=== PATIENT | female | born 1950 | race Caucasian/White ===

== ENCOUNTER 2021-07-11 12:28 | Inpatient (IN) | payer MEDICARE, SELFPAY ==
[2021-07-11] VITALS (37 sets, daily range): BP systolic 99–135; BP diastolic 58–89; PULSE 96–125; RESP 17–29; TEMP 36.1–37.1; O2SAT 92–100; BMI 31.1
--- NOTE | 2021-07-11 12:52 | DI.RAD.S_ITS ---
PROCEDURE: XR CHEST 2V INDICATIONS: chest pain TECHNIQUE: 2 views of the chest were acquired. COMPARISON: [facility], , CHEST 1 VIEW, 01/16/2017, 20:09. FINDINGS: Surgical changes and devices: None. Lungs and pleura: Bibasilar streaky densities. No consolidation, pleural effusions or pneumothorax. Mediastinum: Mediastinal contours are normal. Heart size is normal. Bones and chest wall: No suspicious bony abnormalities. Soft tissues appear unremarkable. IMPRESSION: Bibasilar streaky densities, likely reflecting atelectasis. Dictated by: Ajay Morillo M.D. on 07/11/2021 at 13:20 Approved by: Ajay Morillo M.D. on 07/11/2021 at 13:22
[2021-07-11 13:48] LABS: Add Manual Diff / Slide Review NO; Basophils Absolute Auto 100 /uL (0-100); Basophils Percent Auto 0.7 % (0-2); Eosinophils Absolute Auto 100 /uL (0-450); Eosinophils Percent Auto 0.9 % (2-4); Hematocrit 36.6 % (36-46); Lymphocytes Absolute Auto 900 /uL (1100-4500); Lymphocytes Percent Auto 7.4 % (25-40); Mean Corpuscular HGB Conc 32.7 % (30-36); Mean Corpuscular Hemoglobin 27.8 PG (26-34); Monocytes Absolute Auto 900 /uL (0-900); Monocytes Percent Auto 7.5 % (3-14); Neutrophils Absolute Auto 9800 /uL (1500-7000); Neutrophils Percent Auto 83.5 % (50-75); Platelet Count 285 X10^3/uL (150-400); Red Cell Distribution Width 13.8 % (11.6-14.8); White Blood Cell Count 11.8 X10^3/uL (4.5-11.0)
[2021-07-11 14:10] LABS: INR 1.2 (0.9-1.3); Prothrombin Time 13.6 SECONDS (10.1-12.7)
[2021-07-11 14:15] LABS: Lactate (Lactic Acid) 2.5 mmol/L (0.7-2.1)
[2021-07-11 14:16] LABS: Alanine Aminotransferase 14 IU/L (<35); Albumin 4.2 g/dL (3.5-5.0); Albumin Globulin Ratio 1.2 (1.0-2.8); Alkaline Phosphatase 47 U/L (38-126); Aspartate Aminotransferase 24 IU/L (14-36); Blood Urea Nitrogen 21 mg/dL (7-17); Calcium 9.4 mg/dL (8.4-10.2); Carbon Dioxide 28 mmol/L (22-32); Chloride 99 mmol/L (98-107); Creatine Kinase 77 U/L (30-135); Globulin 3.6 g/dL (1.7-4.1); Glucose 318 mg/dL (80-110); HEMOLYSIS < 15 (0-50); Lipase 74 U/L (23-300); Potassium 3.6 mmol/L (3.4-5.1); Sodium 135 mmol/L (137-145); Total Protein 7.8 g/dL (6.3-8.2)
[2021-07-11 14:28] LABS: NT-proBNP (BNP-Adult 18+) 2960 pg/mL (<125)
[2021-07-11 14:49] LABS: Bacteria Urine None Seen; Culture Indicated Urine Cult Not Indicated; Hyaline Casts Urine 1-5/LPF; Ictotest Urine Negative (Negative); Mucus Urine 1+ (Negative); RBC Urine None Seen (0-5/HPF); Squamous Epithelial Cell Urine 0-1 /HPF (0-5/HPF); WBC Urine 0-1/HPF (0-5/HPF)
--- NOTE | 2021-07-11 14:55 | ED.CHESTPAIN ---
HPI - Chest Pain General Chief Complaint: Shortness of Breath/Dyspnea Stated Complaint: Rib Pain/SOB Time Seen by Provider: 07/11/21 13:55 Source: patient Mode of arrival: Ambulatory History of Present Illness HPI narrative: 71-year-old female with history of diabetes hypertension hyperlipidemia who presents with right chest pain. She says she has had some right-sided rib pain ongoing for last 2-3 days. It is definitely worse when she takes deep breaths in fact hurts when she takes deep breaths. When she walks and breathes it hurts and she feels short of breath. The pain radiates around into the front. She has no left-sided chest discomfort. She has not traveled anywhere she denies any cough. She has no palpitations. This is never happened to her before. She denies any injury. In fact the last couple of days she has not done very much because it hurts so bad. No nausea or vomiting Related Data Home Medications Medication Instructions Recorded Confirmed citalopram 40 mg tablet 40 mg PO QDAY #0 10/28/11 lisinopril 20 1 tab PO BID #0 10/28/11 mg-hydrochlorothiazide 12.5 mg tablet metformin 500 mg tablet,extended 500 mg PO BID #60 tab 01/17/17 release 24 hr (Glucophage XR) Previous Rx's Medication Instructions Recorded glipizide 10 mg tablet, extended 10 mg PO BID #60 10/28/11 release 24 hr NAPROXEN (NAPROSYN) 250 mg PO BIDCC #60 11/10/11 rosuvastatin 10 mg tablet (Crestor) 10 mg PO HS #30 01/18/17 Allergies Allergy/AdvReac Type Severity Reaction Status Date / Time codeine [CODEINE] Allergy Mild Verified 07/11/21 12:51 Review of Systems Review of Systems Narrative: GENERAL: Denies chills, fatigue, malaise, fever, sweats, travel HEENT: Denies sinus pain, ear pain, sore throat, difficulty swallowing, neck pain RESPIRATORY: See HPI CARDIOVASCULAR: Denies chest pain, palpitations, orthopnea, edema GASTROINTESTINAL: Denies nausea, vomiting, abdominal pain, diarrhea, constipation, melena. : Denies dysuria, frequency, incontinence, hematuria, urinary retention, flank pain. MUSCULOSKELETAL: Denies weakness, joint pain, or bony pain SKIN: No rash, no erythema, no pruritus NEUROLOGIC: Denies weakness, dizziness, headache, numbness, change in speech, confusion PSYCHIATRIC: No concerning psychosocial issues. 12 point review of systems is negative except for those stated above and HPI Patient History Social History Smoking Status: Never smoker Smoking Status: Never smoker alcohol intake frequency: other Substance Use Type: does not use Exam Initial Vital Signs Initial Vital Signs: Vital Signs Temperature 98.7 F 07/11/21 12:48 Pulse Rate 120 H 07/11/21 12:48 Respiratory Rate 18 07/11/21 12:48 Blood Pressure 99/65 07/11/21 12:48 Pulse Oximetry 96 07/11/21 12:48 GENERAL: Alert 71-year-old female uncomfortable in no acute distress. HEENT: Head atraumatic,EOMI, pupils reactive, face symmetric, moist mucous membranes CARDIOVASCULAR: Regular rate and rhythm without murmurs, rubs or gallops. RESPIRATORY: Breath sounds equal bilaterally, no wheezes rales or rhonchi. ABDOMEN: Soft, nontender. No right upper quadrant pain negative [place] sign no lower abdominal pain : No CVA tenderness EXTREMITIES: Normal range of motion, no clubbing or edema. Neurovascularly intact NEUROLOGICAL: Alert and oriented x4.Normal gait and speech. SKIN: Warm, dry, no laceration, no petechiae, no rashes or lesions. Course Orders Ordered: ED Orders 07/11/21 12:52 XR chest 2V Stat EKG-12 Lead Stat 07/11/21 13:32 COVID19 -Nasal swab/Pre-Proc Stat Complete Blood Count AUTO DIFF Stat Comprehensive Metabolic Panel Stat Lactate (Lactic Acid) Stat Lipase Stat NT-proBNP (BNP-Adult 18+) Stat Procalcitonin Stat Prothrombin Time INR Stat Troponin & CK Cardiac Panel Stat 07/11/21 13:38 Ictotest Urine Stat Urine Microscopic Stat 07/11/21 13:55 Blood Culture Stat 07/11/21 15:02 CT angio chest PE protocol Stat 07/11/21 16:07 PT [Prothrombin Time INR] Stat PTT [Partial Thromboplastin Time] Stat Trop I [Troponin I] Stat 07/11/21 23:00 PTT [Partial Thromboplastin Time] Routine Acetaminophen (Acetaminophen 325 Mg Tablet) 975 mg PO Q8HR PRN PRN Reason: pain Apixaban (Apixaban 5 Mg Tablet) 5 mg PO BID JON Heparin Sodium/Dextrose (Heparin Drip) 25,000 unit in 500 mls @ 24 mls/hr IV CONT JON; Protocol Stop: 07/11/21 22:00 Last Admin: 07/11/21 17:03 Dose: 1,200 units/hr, 24 mls/hr Documented by: MICKY Naloxone HCl (Naloxone 0.4 Mg/Ml Vial) 0.2 mg IV Q2MIN PRN PRN Reason: Opiate Reversal Ondansetron HCl (Ondansetron 4 Mg/2 Ml Inj) 4 mg IV Q8HR PRN PRN Reason: Nausea And Vomiting Oxycodone HCl (Oxycodone Ir 5 Mg Tablet) 5 mg PO Q4HR PRN PRN Reason: Pain, Moderate (4-6) Discontinued Medications Heparin Sodium (Porcine) (Heparin 5,000 Unit/Ml Vial) 5,000 unit IV NOW ONE Stop: 07/11/21 15:54 Last Admin: 07/11/21 16:48 Dose: Not Given Documented by: MICKY Heparin Sodium (Porcine) (Heparin 5,000 Unit/Ml Vial) 7,000 unit 80 unit/kg (7000 unit) IV NOW ONE Stop: 07/11/21 16:47 Last Admin: 07/11/21 17:03 Dose: 7,000 unit Documented by: MICKY Heparin Sodium/Dextrose (Heparin Drip) 25,000 unit in 500 mls @ 20 mls/hr IV CONT JON; Protocol Last Admin: 07/11/21 16:48 Dose: Not Given Documented by: MICKY Vital Signs Vital signs: Vital Signs - 8 hr 07/11/21 12:48 07/11/21 14:44 07/11/21 14:45 Temperature 98.7 F Pulse Rate 120 H 118 H 125 H Respiratory Rate 18 17 24 Blood Pressure 99/65 Pulse Oximetry 96 99 95 07/11/21 14:49 07/11/21 14:50 07/11/21 15:00 Temperature Pulse Rate 111 H 104 H 103 H Respiratory Rate 27 H 24 26 H Blood Pressure 122/89 119/58 L 123/59 L Pulse Oximetry 95 96 94 07/11/21 15:17 07/11/21 15:18 07/11/21 15:20 Temperature Pulse Rate 115 H 110 H 105 H Respiratory Rate 28 H 24 Blood Pressure 135/70 130/66 Pulse Oximetry 92 95 98 07/11/21 15:30 07/11/21 15:41 07/11/21 15:45 Temperature Pulse Rate 105 H 104 H 105 H Respiratory Rate 25 H 24 23 Blood Pressure 116/61 112/60 Pulse Oximetry 99 99 98 07/11/21 15:51 07/11/21 16:00 07/11/21 16:15 Temperature Pulse Rate 104 H 106 H 106 H Respiratory Rate 24 29 H 25 H Blood Pressure 104/63 103/67 Pulse Oximetry 98 96 96 07/11/21 16:30 07/11/21 16:45 07/11/21 17:00 Temperature Pulse Rate 106 H 106 H 101 H Respiratory Rate 24 26 H 29 H Blood Pressure Pulse Oximetry 96 95 96 07/11/21 17:03 07/11/21 17:10 Temperature Pulse Rate 101 H 102 H Respiratory Rate 21 25 H Blood Pressure 122/71 115/64 Pulse Oximetry 100 100 MDM - Chest Pain Lab Data Result diagrams: 07/11/21 13:32 07/11/21 13:32 Labs: Lab Results 07/11/21 07/11/21 07/11/21 Range/Units 13:32 13:32 13:32 WBC 11.8 H (4.5-11.0) X10^3/uL RBC 4.30 (4.0-5.2) X10^6/uL Hgb 12.0 (12.0-16.0) g/dL Hct 36.6 (36-46) % MCV 85.0 (80-100) fL MCH 27.8 (26-34) PG MCHC 32.7 (30-36) % RDW 13.8 (11.6-14.8) % Plt Count 285 (150-400) X10^3/uL Neut % (Auto) 83.5 H (50-75) % Lymph % (Auto) 7.4 L (25-40) % [place] % (Auto) 7.5 (3-14) % Eos % (Auto) 0.9 L (2-4) % Baso % (Auto) 0.7 (0-2) % Neut # (Auto) 9800 H (9256-8480) /uL Lymph # (Auto) 900 L (0931-9662) /uL [place] # (Auto) 900 (0-900) /uL Eos # (Auto) 100 (0-450) /uL Baso # (Auto) 100 (0-100) /uL PT 13.6 H (10.1-12.7) SECONDS INR 1.2 (0.9-1.3) APTT (26.4-36.2) SECONDS Sodium 135 L (137-145) mmol/L Potassium 3.6 (3.4-5.1) mmol/L Chloride 99 (98-107) mmol/L Carbon Dioxide 28 (22-32) mmol/L BUN 21 H (7-17) mg/dL Creatinine 1.05 H (0.52-1.04) mg/dL Estimated GFR 52.0 L (>60) mL/min BUN/Creatinine Ratio 20.0 (6-22) Glucose 318 H (80-110) mg/dL Lactate (0.7-2.1) mmol/L Calcium 9.4 (8.4-10.2) mg/dL Total Bilirubin 1.0 (0.2-1.3) mg/dL AST 24 (14-36) IU/L ALT 14 (<35) IU/L Alkaline Phosphatase 47 (38-126) U/L Total Creatine Kinase 77 (30-135) U/L CK-MB (CK-2) TNP CK-MB (CK-2) Rel Index TNP Troponin I 0.600 H* (0.01-0.034) ng/mL NT-Pro-B Natriuret Pep 2960 H (<125) pg/mL Total Protein 7.8 (6.3-8.2) g/dL Albumin 4.2 (3.5-5.0) g/dL Globulin 3.6 (1.7-4.1) g/dL Albumin/Globulin Ratio 1.2 (1.0-2.8) Lipase 74 (23-300) U/L Procalcitonin (<0.5) ng/mL Ur Bilirubin Confirm (Negative) Urine RBC (0-5/HPF) Urine WBC (0-5/HPF) Ur Squamous Epith Cells (0-5/HPF) Urine Bacteria (None) Hyaline Casts (None) Urine Mucus (Negative) Ur Culture Indicated? SARS-CoV-2 (PCR) (Negative) 07/11/21 07/11/21 07/11/21 Range/Units 13:32 13:32 13:32 WBC (4.5-11.0) X10^3/uL RBC (4.0-5.2) X10^6/uL Hgb (12.0-16.0) g/dL Hct (36-46) % MCV (80-100) fL MCH (26-34) PG MCHC (30-36) % RDW (11.6-14.8) % Plt Count (150-400) X10^3/uL Neut % (Auto) (50-75) % Lymph % (Auto) (25-40) % [place] % (Auto) (3-14) % Eos % (Auto) (2-4) % Baso % (Auto) (0-2) % Neut # (Auto) (6950-5816) /uL Lymph # (Auto) (0695-8047) /uL [place] # (Auto) (0-900) /uL Eos # (Auto) (0-450) /uL Baso # (Auto) (0-100) /uL PT (10.1-12.7) SECONDS INR (0.9-1.3) APTT (26.4-36.2) SECONDS Sodium (137-145) mmol/L Potassium (3.4-5.1) mmol/L Chloride (98-107) mmol/L Carbon Dioxide (22-32) mmol/L BUN (7-17) mg/dL Creatinine (0.52-1.04) mg/dL Estimated GFR (>60) mL/min BUN/Creatinine Ratio (6-22) Glucose (80-110) mg/dL Lactate 2.5 H (0.7-2.1) mmol/L Calcium (8.4-10.2) mg/dL Total Bilirubin (0.2-1.3) mg/dL AST (14-36) IU/L ALT (<35) IU/L Alkaline Phosphatase (38-126) U/L Total Creatine Kinase (30-135) U/L CK-MB (CK-2) CK-MB (CK-2) Rel Index Troponin I (0.01-0.034) ng/mL NT-Pro-B Natriuret Pep (<125) pg/mL Total Protein (6.3-8.2) g/dL Albumin (3.5-5.0) g/dL Globulin (1.7-4.1) g/dL Albumin/Globulin Ratio (1.0-2.8) Lipase (23-300) U/L Procalcitonin 0.10 (<0.5) ng/mL Ur Bilirubin Confirm (Negative) Urine RBC (0-5/HPF) Urine WBC (0-5/HPF) Ur Squamous Epith Cells (0-5/HPF) Urine Bacteria (None) Hyaline Casts (None) Urine Mucus (Negative) Ur Culture Indicated? SARS-CoV-2 (PCR) Negative (Negative) 07/11/21 07/11/21 07/11/21 Range/Units 13:38 13:38 16:07 WBC (4.5-11.0) X10^3/uL RBC (4.0-5.2) X10^6/uL Hgb (12.0-16.0) g/dL Hct (36-46) % MCV (80-100) fL MCH (26-34) PG MCHC (30-36) % RDW (11.6-14.8) % Plt Count (150-400) X10^3/uL Neut % (Auto) (50-75) % Lymph % (Auto) (25-40) % [place] % (Auto) (3-14) % Eos % (Auto) (2-4) % Baso % (Auto) (0-2) % Neut # (Auto) (6767-2044) /uL Lymph # (Auto) (2447-4804) /uL [place] # (Auto) (0-900) /uL Eos # (Auto) (0-450) /uL Baso # (Auto) (0-100) /uL PT (10.1-12.7) SECONDS INR (0.9-1.3) APTT (26.4-36.2) SECONDS Sodium (137-145) mmol/L Potassium (3.4-5.1) mmol/L Chloride (98-107) mmol/L Carbon Dioxide (22-32) mmol/L BUN (7-17) mg/dL Creatinine (0.52-1.04) mg/dL Estimated GFR (>60) mL/min BUN/Creatinine Ratio (6-22) Glucose (80-110) mg/dL Lactate 3.0 H (0.7-2.1) mmol/L Calcium (8.4-10.2) mg/dL Total Bilirubin (0.2-1.3) mg/dL AST (14-36) IU/L ALT (<35) IU/L Alkaline Phosphatase (38-126) U/L Total Creatine Kinase (30-135) U/L CK-MB (CK-2) CK-MB (CK-2) Rel Index Troponin I (0.01-0.034) ng/mL NT-Pro-B Natriuret Pep (<125) pg/mL Total Protein (6.3-8.2) g/dL Albumin (3.5-5.0) g/dL Globulin (1.7-4.1) g/dL Albumin/Globulin Ratio (1.0-2.8) Lipase (23-300) U/L Procalcitonin (<0.5) ng/mL Ur Bilirubin Confirm Negative (Negative) Urine RBC None seen (0-5/HPF) Urine WBC 0-1/hpf (0-5/HPF) Ur Squamous Epith Cells 0-1 /hpf (0-5/HPF) Urine Bacteria None seen (None) Hyaline Casts 1-5/lpf (None) Urine Mucus 1+ H (Negative) Ur Culture Indicated? Cult not indicated SARS-CoV-2 (PCR) (Negative) 07/11/21 07/11/21 Range/Units 16:07 16:07 WBC (4.5-11.0) X10^3/uL RBC (4.0-5.2) X10^6/uL Hgb (12.0-16.0) g/dL Hct (36-46) % MCV (80-100) fL MCH (26-34) PG MCHC (30-36) % RDW (11.6-14.8) % Plt Count (150-400) X10^3/uL Neut % (Auto) (50-75) % Lymph % (Auto) (25-40) % [place] % (Auto) (3-14) % Eos % (Auto) (2-4) % Baso % (Auto) (0-2) % Neut # (Auto) (9681-8428) /uL Lymph # (Auto) (5771-3590) /uL [place] # (Auto) (0-900) /uL Eos # (Auto) (0-450) /uL Baso # (Auto) (0-100) /uL PT 13.3 H (10.1-12.7) SECONDS INR 1.2 (0.9-1.3) APTT 27 (26.4-36.2) SECONDS Sodium (137-145) mmol/L Potassium (3.4-5.1) mmol/L Chloride (98-107) mmol/L Carbon Dioxide (22-32) mmol/L BUN (7-17) mg/dL Creatinine (0.52-1.04) mg/dL Estimated GFR (>60) mL/min BUN/Creatinine Ratio (6-22) Glucose (80-110) mg/dL Lactate (0.7-2.1) mmol/L Calcium (8.4-10.2) mg/dL Total Bilirubin (0.2-1.3) mg/dL AST (14-36) IU/L ALT (<35) IU/L Alkaline Phosphatase (38-126) U/L Total Creatine Kinase (30-135) U/L CK-MB (CK-2) CK-MB (CK-2) Rel Index Troponin I 0.794 H* (0.01-0.034) ng/mL NT-Pro-B Natriuret Pep (<125) pg/mL Total Protein (6.3-8.2) g/dL Albumin (3.5-5.0) g/dL Globulin (1.7-4.1) g/dL Albumin/Globulin Ratio (1.0-2.8) Lipase (23-300) U/L Procalcitonin (<0.5) ng/mL Ur Bilirubin Confirm (Negative) Urine RBC (0-5/HPF) Urine WBC (0-5/HPF) Ur Squamous Epith Cells (0-5/HPF) Urine Bacteria (None) Hyaline Casts (None) Urine Mucus (Negative) Ur Culture Indicated? SARS-CoV-2 (PCR) (Negative) Urine Dip Bedside Urine Glucose Negative Bedside Urine Bilirubin ++ 2 Bedside Urine Ketone +/- 5 Urine Specific [place] 1.030 Bedside Urine Occult Blood - Negative Bedside Urine pH 5.5 Bedside Urine Protein +/- 15 Bedside Urine Urobilinogen - Negative Bedside Urine Nitrite - Negative Bedside Urine Leukocytes - Negative Esterase Imaging Data Chest x-ray: Radiologist's Impression: PROCEDURE:? XR CHEST 2V ? INDICATIONS:? chest pain ? TECHNIQUE:? 2 views of the chest were acquired.? ? COMPARISON:? [facility], , CHEST 1 VIEW, 01/16/2017, 20:09. ? FINDINGS:? ? Surgical changes and devices:? None.? ? Lungs and pleura:? Bibasilar streaky densities.? No consolidation, pleural effusions or pneumothorax.? ? Mediastinum:? Mediastinal contours are normal.? Heart size is normal.? ? Bones and chest wall:? No suspicious bony abnormalities.? Soft tissues appear unremarkable.? ? IMPRESSION:? Bibasilar streaky densities, likely reflecting atelectasis. ? ? Dictated by: Ajay Morillo M.D. on 07/11/2021 at 13:20 ? ? Approved by: Ajay Morillo M.D. on 07/11/2021 at 13:22? ECG Data Interpretation: Normal sinus rhythm rate 117 p.r. interval 132 QRS 90 QTC 507 T-wave inversions noted in V2 through V4 without ST elevations these are new from previous EKG in 2017 EKG 2. Heart rate 104 persistent T-wave inversions noted V2 through V [address] T changes or depressions T-wave inversion also noted in lead 2 and AVF MDM Narrative Medical decision making narrative: Patient is found to have a positive troponin of 0.6. She is also found to have an elevated BNP of 2960. CT actually comes of back was bilateral pulmonary embolisms with probable right lower lobe pulmonary infarct. She is not hypotensive or hypoxic is without saddle PE. 1700 Dr Fountain hodspitalist at [place] has been updated patient's symptoms and test results at this time does not require any intervention. Does recommend hospitalization with anticoagulation Discharge Plan Departure Patient Disposition: Admitted as Observation Clinical Impression: Pulmonary embolism Admit Date/Time: 07/11/21 17:10 Admit Provider: Elie Thibodeaux
--- NOTE | 2021-07-11 15:02 | DI.CT.S_ITS ---
PROCEDURE: CT ANGIO CHEST PE PROTOCOL INDICATIONS: right sided pain +trop TECHNIQUE: After the administration of intravenous contrast, 2 mm thick sections acquired from the pulmonary apices to the posterior costophrenic angles. 3-dimensional maximum intensity projection (MIP) coronal and sagittal reformats were then acquired through the thorax. For radiation dose reduction, the following was used: automated exposure control, adjustment of mA and/or kV according to patient size. COMPARISON: [facility], CT, PE STUDY (CTA CHEST), 01/16/2017, 23:54. [facility], CR, XR CHEST 2V, 07/11/2021, 12:54. FINDINGS: Image quality: Excellent. Pulmonary arteries: There are bilateral filling defects involving segmental and subsegmental pulmonary arteries within all lobes consistent with pulmonary embolism. No embolism demonstrated within the lobar or main pulmonary artery. The main pulmonary artery is within normal size limits, measuring up to 2.7 cm. No definite leftward deviation of the interventricular septum to suggest right heart strain. Lungs and pleura: There is a small right pleural effusion. Dependent atelectasis is demonstrated bilaterally. There also peripheral ground-glass opacities posteriorly in the right lower lobe which may represent atelectasis but a developing pulmonary infarct cannot be excluded. The trachea and central airways are patent. Mediastinum: Heart size is normal, with a minimal pericardial effusion. Thoracic aorta is normal in caliber and enhancement. There are mildly enlarged mediastinal lymph nodes including a precarinal node measuring up to 1.0 cm in short axis and an azygoesophageal node measuring up to 1.2 cm in short axis. Esophagus is normal in caliber, with a small hiatal hernia. Bones and chest wall: No suspicious bony lesions. Ribs and thoracic spine appear intact throughout. Thyroid gland is heterogeneous with bilateral indistinct nodules. No axillary or supraclavicular adenopathy. Abdomen: Visualized upper abdominal solid organs appear normal in the early arterial phase of enhancement. IMPRESSION: 1. Bilateral pulmonary embolism demonstrated within all lobes involving segmental and subsegmental branches. No definite evidence of right heart strain. 2. Peripheral ground-glass opacity posteriorly in the right lower lobe is suspicious for a developing pulmonary infarct given the occluded subsegmental pulmonary arteries extending to this region. 3. Small right pleural effusion. Findings discussed with Dr. Hill on 07/11/2021 at 4:25 p.m.. 4. Mildly enlarged mediastinal lymph nodes are nonspecific but likely reactive. Findings are similar to the prior study. Dictated by: Dario Archer M.D. on 07/11/2021 at 16:10 Approved by: Dario Archer M.D. on 07/11/2021 at 16:29
[2021-07-11 15:17] LABS: COVID19 -Nasal RAPID Negative (Negative)
[2021-07-11 15:37] LABS: Reflexed Lactate in 2 Hours Y
[2021-07-11 16:49] LABS: INR 1.2 (0.9-1.3); Prothrombin Time 13.3 SECONDS (10.1-12.7)
[2021-07-11 16:52] LABS: PTT Partial Thromboplastin Tim 27 SECONDS (26.4-36.2)
[2021-07-11] MEDS: HEPARIN DRIP 25,000 UNIT/500 ML IV.SOLN 24 UNIT IV (17:03)
[2021-07-11] MEDS: HEPARIN 5,000 UNIT/ML VIAL 7000 UNIT IV (17:03)
[2021-07-11 17:20] LABS: Troponin I 0.794 ng/mL (0.01-0.034)
[2021-07-11] MEDS: APIXABAN 5 MG TABLET PO (21:04)
[2021-07-11] MEDS: OXYCODONE IR 5 MG TABLET PO (21:04)
[2021-07-11 21:09] LABS: Troponin I 0.603 ng/mL (0.01-0.034)
--- NOTE | 2021-07-11 21:47 | P.HP_ITS ---
History of Present Illness History of Present Illness Date Patient Seen: 07/11/21 Time Patient Seen: 21:48 Chief complaint: Rib Pain/SOB Narrative: Radha Bautista is?71-year-old female with history of diabetes type 2, hypertension, and hyperlipidemia who presented to the ED with a 3-day of right sided chest pain.? It is definitely worse when she takes deep breaths in fact hurts when she takes deep breaths.? When she walks and breathes it hurts and she feels short of breath.? The pain radiates front to back.? Approximately a week and a half ago, she had one episode of left sided chest pain that felt like a lightning bolt and immediately resolved. She has not traveled anywhere, or been inactive, laid up for any period of time, denies air travel or long car trips. She denies any cough or palpitations, denies nausea or vomiting, dysurea, diarrhea or constipation.? This is never happened to her before.? She denies any recent injury or surgery.? In fact the last couple of days she has not done very much because it hurts so bad.? Chest x-ray indicated bilateral ?streaky? densities likely reflecting atelectasis. CTA of the chest indicated the following findings: 1. Bilateral pulmonary embolism demonstrated within all lobes involving segmental and subsegmental branches.? No definite evidence of right heart strain. 2. Peripheral ground-glass opacity posteriorly in the right lower lobe is suspicious for a developing pulmonary infarct given the occluded subsegmental pulmonary arteries extending to this region.?3. Small right pleural effusion.The emergency department did start her on a heparin drip. They consulted with Cardiology and they were advised that there would not likely be any invasive intervention and that she could be treated here. She is afebrile, blood pressure 125/72, heart rate 99, respiratory rate 18, oxygen saturation of 97% on room air, she weighs 87.5 kg with a BMI of 31.1. She does have a mildly elevated WBC of 11.8, with a mild left shift of 90 100, INR is 1.2, sodium 135, BUN 21, creatinine 1.05 with an EGFR 52 which is abnormal for her, her glucose was 318, A1c 5.9, lactate 3.0, troponin 0.603 which is to trending downward from her peak, proBNP 2960, procalcitonin is negative at 0.10, UA is negative for UTI, COVID-19 PCR is negative. Patient History Medical History Diabetes type 2, controlled Essential hypertension HLD (hyperlipidemia) Surgical History Hx of hysterectomy Family & Social History Family History Father Myocardial infarction Mother Lung cancer Social History: household members spouse Prior Living Arrangements House Safety & Behavioral: Feels Safe in Current Yes Environment Been Physically Hurt or No Threatened By a Person Suicidal Ideation Description None Suicide Plan Description No Plan Tobacco & Substance use: Smoking Status Never smoker alcohol intake current alcohol intake frequency other Substance Use Type does not use Meds Home Medications and Allergies Home Medications Medication Instructions Recorded Confirmed Type citalopram 40 mg tablet 40 mg PO QDAY #0 10/28/11 07/11/21 History glipizide 10 mg tablet, extended 10 mg PO BID #60 10/28/11 07/11/21 Rx release 24 hr lisinopril 20 1 tab PO BID #0 10/28/11 07/11/21 History mg-hydrochlorothiazide 12.5 mg tablet NAPROXEN (NAPROSYN) 250 mg PO BIDCC #60 11/10/11 07/11/21 Rx metformin 500 mg tablet,extended 500 mg PO BID #60 tab 01/17/17 07/11/21 History release 24 hr (Glucophage XR) rosuvastatin 10 mg tablet (Crestor) 10 mg PO HS #30 01/18/17 07/11/21 Rx dulaglutide 0.75 mg/0.5 mL 0.75 mg SUBCUT WEEKLY 07/11/21 07/11/21 History subcutaneous pen injector (Trulicity) Allergies Allergy/AdvReac Type Severity Reaction Status Date / Time codeine [CODEINE] Allergy Mild Verified 07/11/21 12:51 Review of Systems Review of Systems ROS: Yes All systems reviewed with the patient and are negative except as otherwise documented Exam Vital Signs (past 8 hours): - 07/11/21 14:44 07/11/21 14:45 07/11/21 14:49 Temperature Pulse Rate 118 H 125 H 111 H Respiratory Rate 17 24 27 H Blood Pressure 122/89 Pulse Oximetry 99 95 95 07/11/21 14:50 07/11/21 15:00 07/11/21 15:17 Temperature Pulse Rate 104 H 103 H 115 H Respiratory Rate 24 26 H Blood Pressure 119/58 L 123/59 L Pulse Oximetry 96 94 92 07/11/21 15:18 07/11/21 15:20 07/11/21 15:30 Temperature Pulse Rate 110 H 105 H 105 H Respiratory Rate 28 H 24 25 H Blood Pressure 135/70 130/66 116/61 Pulse Oximetry 95 98 99 07/11/21 15:41 07/11/21 15:45 07/11/21 15:51 Temperature Pulse Rate 104 H 105 H 104 H Respiratory Rate 24 23 24 Blood Pressure 112/60 104/63 Pulse Oximetry 99 98 98 07/11/21 16:00 07/11/21 16:15 07/11/21 16:30 Temperature Pulse Rate 106 H 106 H 106 H Respiratory Rate 29 H 25 H 24 Blood Pressure 103/67 Pulse Oximetry 96 96 96 07/11/21 16:45 07/11/21 17:00 07/11/21 17:03 Temperature Pulse Rate 106 H 101 H 101 H Respiratory Rate 26 H 29 H 21 Blood Pressure 122/71 Pulse Oximetry 95 96 100 07/11/21 17:10 07/11/21 17:15 07/11/21 17:20 Temperature Pulse Rate 102 H 101 H 101 H Respiratory Rate 25 H 24 25 H Blood Pressure 115/64 122/76 Pulse Oximetry 100 99 100 07/11/21 17:30 07/11/21 17:40 07/11/21 17:45 Temperature Pulse Rate 101 H 102 H 102 H Respiratory Rate 27 H 26 H 26 H Blood Pressure 107/60 109/64 Pulse Oximetry 98 96 99 07/11/21 17:50 07/11/21 18:00 07/11/21 18:10 Temperature Pulse Rate 103 H 100 H 101 H Respiratory Rate 25 H 22 24 Blood Pressure 107/62 108/70 112/71 Pulse Oximetry 100 100 99 07/11/21 18:15 07/11/21 18:20 07/11/21 18:30 Temperature Pulse Rate 100 H 96 H 99 H Respiratory Rate 24 24 24 Blood Pressure 106/66 111/67 Pulse Oximetry 95 94 95 07/11/21 18:40 07/11/21 18:45 07/11/21 18:51 Temperature Pulse Rate 99 H 100 H 98 H Respiratory Rate 24 25 H 24 Blood Pressure 115/68 121/89 Pulse Oximetry 95 94 95 07/11/21 19:00 07/11/21 19:44 Temperature 97 F L Pulse Rate 98 H 99 H Respiratory Rate 24 18 Blood Pressure 123/64 125/72 Pulse Oximetry 96 97 Oxygen Delivery Method Room Air Oxygen Flow Rate 0 Narrative Exam Narrative: Gen: Alert, oriented, well-developed 70 y.o. female, mildly uncomfortable appearing HEENT: normocephalic, atraumatic, conjunctiva clear, sclera non-icteric, oral mucosa pink and moist Neck: supple, full ROM, no JVD, trachea is midline Resp: Lungs CTA, non-labored breathing CV: RRR, no murmur or rubs Abd: soft, non-tender, normoactive BTs Skin: no lesions or rashes, dry and intact Neuro: Alert and oriented X 4 w/no focal deficits. Speech clear and coherent. Extremities: moves all 4 extremities, is ambulatory, negative Ankur?s sign Psyche: normal mood and affect. Objective Labs Result Diagrams: 07/11/21 13:32 07/11/21 13:32 Labs: Laboratory Results - last 24 hr 07/11/21 07/11/21 07/11/21 13:32 13:32 13:32 WBC 11.8 H RBC 4.30 Hgb 12.0 Hct 36.6 MCV 85.0 MCH 27.8 MCHC 32.7 RDW 13.8 Plt Count 285 Neut % (Auto) 83.5 H Lymph % (Auto) 7.4 L [place] % (Auto) 7.5 Eos % (Auto) 0.9 L Baso % (Auto) 0.7 Neut # (Auto) 9800 H Lymph # (Auto) 900 L [place] # (Auto) 900 Eos # (Auto) 100 Baso # (Auto) 100 PT 13.6 H INR 1.2 APTT Sodium 135 L Potassium 3.6 Chloride 99 Carbon Dioxide 28 BUN 21 H Creatinine 1.05 H Estimated GFR 52.0 L BUN/Creatinine Ratio 20.0 Glucose 318 H Lactate Calcium 9.4 Total Bilirubin 1.0 AST 24 ALT 14 Alkaline Phosphatase 47 Total Creatine Kinase 77 CK-MB (CK-2) TNP CK-MB (CK-2) Rel Index TNP Troponin I 0.600 H* NT-Pro-B Natriuret Pep 2960 H Total Protein 7.8 Albumin 4.2 Globulin 3.6 Albumin/Globulin Ratio 1.2 Lipase 74 Procalcitonin Ur Bilirubin Confirm Urine RBC Urine WBC Ur Squamous Epith Cells Urine Bacteria Hyaline Casts Urine Mucus Ur Culture Indicated? SARS-CoV-2 (PCR) 07/11/21 07/11/21 07/11/21 13:32 13:32 13:32 WBC RBC Hgb Hct MCV MCH MCHC RDW Plt Count Neut % (Auto) Lymph % (Auto) [place] % (Auto) Eos % (Auto) Baso % (Auto) Neut # (Auto) Lymph # (Auto) [place] # (Auto) Eos # (Auto) Baso # (Auto) PT INR APTT Sodium Potassium Chloride Carbon Dioxide BUN Creatinine Estimated GFR BUN/Creatinine Ratio Glucose Lactate 2.5 H Calcium Total Bilirubin AST ALT Alkaline Phosphatase Total Creatine Kinase CK-MB (CK-2) CK-MB (CK-2) Rel Index Troponin I NT-Pro-B Natriuret Pep Total Protein Albumin Globulin Albumin/Globulin Ratio Lipase Procalcitonin 0.10 Ur Bilirubin Confirm Urine RBC Urine WBC Ur Squamous Epith Cells Urine Bacteria Hyaline Casts Urine Mucus Ur Culture Indicated? SARS-CoV-2 (PCR) Negative 07/11/21 07/11/21 07/11/21 13:38 13:38 16:07 WBC RBC Hgb Hct MCV MCH MCHC RDW Plt Count Neut % (Auto) Lymph % (Auto) [place] % (Auto) Eos % (Auto) Baso % (Auto) Neut # (Auto) Lymph # (Auto) [place] # (Auto) Eos # (Auto) Baso # (Auto) PT INR APTT Sodium Potassium Chloride Carbon Dioxide BUN Creatinine Estimated GFR BUN/Creatinine Ratio Glucose Lactate 3.0 H Calcium Total Bilirubin AST ALT Alkaline Phosphatase Total Creatine Kinase CK-MB (CK-2) CK-MB (CK-2) Rel Index Troponin I NT-Pro-B Natriuret Pep Total Protein Albumin Globulin Albumin/Globulin Ratio Lipase Procalcitonin Ur Bilirubin Confirm Negative Urine RBC None seen Urine WBC 0-1/hpf Ur Squamous Epith Cells 0-1 /hpf Urine Bacteria None seen Hyaline Casts 1-5/lpf Urine Mucus 1+ H Ur Culture Indicated? Cult not indicated SARS-CoV-2 (PCR) 07/11/21 07/11/21 07/11/21 16:07 16:07 19:30 WBC RBC Hgb Hct MCV MCH MCHC RDW Plt Count Neut % (Auto) Lymph % (Auto) [place] % (Auto) Eos % (Auto) Baso % (Auto) Neut # (Auto) Lymph # (Auto) [place] # (Auto) Eos # (Auto) Baso # (Auto) PT 13.3 H INR 1.2 APTT 27 Sodium Potassium Chloride Carbon Dioxide BUN Creatinine Estimated GFR BUN/Creatinine Ratio Glucose Lactate Calcium Total Bilirubin AST ALT Alkaline Phosphatase Total Creatine Kinase CK-MB (CK-2) CK-MB (CK-2) Rel Index Troponin I 0.794 H* 0.603 H* NT-Pro-B Natriuret Pep Total Protein Albumin Globulin Albumin/Globulin Ratio Lipase Procalcitonin Ur Bilirubin Confirm Urine RBC Urine WBC Ur Squamous Epith Cells Urine Bacteria Hyaline Casts Urine Mucus Ur Culture Indicated? SARS-CoV-2 (PCR) Assessment & Plan Assessment & Plan narrative: Radha Bautista is admitted for treatment and management of a pulmonary embolism. 1. Unprovoked bilateral PE, acute, present on admission * Continue heparin drip until 2200 and start apixaban at 9:00 p.m. * Cardiac monitoring * Complete echocardiogram in the morning * May require an outpatient malignancy workup after discharge 2. Essential hypertension, appears to be well controlled * Continue home dose lisinopril 20 mg p.o. daily 3. Diabetes type 2 well controlled * A1c is 5.9 * She will have Lantus 36 units at bedtime and low-dose correctional insulin scale * She normally takes Trulicity weekly as well as metformin and glipizide VTE Prophylaxis: Wells risk score 7.5 Heparin drip and will be anticoagulated on apixaban. Patient is admitted to the inpatient service due to the severity of disease, risks of further disease progression and this stay is expected to exceed 2 midnights. FEN: IV fluids: saline lock, diet: cardiac carb controlled, labs: CBC, C/BMP, liver enzymes, Mag, PT/INR Consultants None Dispo: Probable discharge to home on apixaban Code status: Full Code as discussed with the patient who identifies her Zoran Castro as her surrogate and POA. [X] I have utilized all available immediate resources to obtain, update, or review of the patient's current medications COVID-19 COVID-19 status: Negative Result date/Date tested (Pos, Neg/Pending): 07/11/21 Scores Wells' Criteria for PE Clinical signs and symptoms of DVT: Yes PE is #1 Dx or equally likely: Yes Heart rate > 100: Yes Immobilization at least 3 days or surg in previous 4 weeks: No History of PE or DVT: No Hemoptysis: No Malignancy w/Treatment within 6 months or palliative: No Wells' PE Score total: 7.5 Quality VTE Deep Vein Thrombosis/Pulmonary Embolism Present on Admission: Yes MIPS - Admit I confirm the patient?s Advance Care Plan is present, Code status is documented, Surrogate decision maker is in patient?s record [If Yes, STOP here]: Yes MIPS - DC The patient has current or prior documentation of left ventricular ejection fraction (LVEF) less than 40%, or moderate or severely depressed left ventricular systolic function.: No
[2021-07-11 21:53] LABS: Hemoglobin A1C% w Est Avg Glu 5.9 % (4.0-6.0)
[2021-07-11] MEDS: INSULIN GLARGINE 100 UNIT/ML 3ML PEN 36 UNIT SUBCUT (22:02)
[2021-07-11] MEDS: ATORVASTATIN 20 MG TABLET PO (22:05)
[2021-07-11 23:38] LABS: PTT Partial Thromboplastin Tim 76 SECONDS (26.4-36.2)
[2021-07-12] VITALS (8 sets, daily range): BP systolic 110–123; BP diastolic 58–69; PULSE 82–95; RESP 17–20; TEMP 36.2–37.2; O2SAT 93–98
[2021-07-12] MEDS: ACETAMINOPHEN 325 MG TABLET 975 MG PO (04:27)
--- NOTE | 2021-07-12 06:47 | PC.NURSE ---
Addendum entered by Ann Marie Jarrell R.N. 07/12/21 06:51: PTT pending, will pass down to AM shift. Original Note: Patient arrived to AC unit at 19:45, alert and oriented, able to make needs known. Oriented to room and call light. Bed in low position , brakes are locked. Patient came up on heparin drip started in ER running at 1200 u/hr (24ml/hr), PTT @ 2315 was 76, per protocol, no changes.
[2021-07-12 06:54] LABS: Add Manual Diff / Slide Review NO; Basophils Absolute Auto 100 /uL (0-100); Basophils Percent Auto 0.9 % (0-2); Eosinophils Absolute Auto 300 /uL (0-450); Eosinophils Percent Auto 2.9 % (2-4); Hematocrit 32.8 % (36-46); Hemoglobin 11.1 g/dL (12.0-16.0); Lymphocytes Absolute Auto 1600 /uL (1100-4500); Lymphocytes Percent Auto 18.1 % (25-40); Mean Corpuscular HGB Conc 33.9 % (30-36); Mean Corpuscular Hemoglobin 28.3 PG (26-34); Mean Corpuscular Volume 83.4 fL (80-100); Monocytes Absolute Auto 1000 /uL (0-900); Monocytes Percent Auto 11.6 % (3-14); Neutrophils Absolute Auto 5900 /uL (1500-7000); Neutrophils Percent Auto 66.5 % (50-75); Platelet Count 253 X10^3/uL (150-400); Red Blood Cell Count 3.94 X10^6/uL (4.0-5.2); Red Cell Distribution Width 13.9 % (11.6-14.8); White Blood Cell Count 8.9 X10^3/uL (4.5-11.0)
[2021-07-12 07:01] LABS: PTT Partial Thromboplastin Tim 52 SECONDS (26.4-36.2)
[2021-07-12 07:09] LABS: BUN Creatinine Ratio 19.6 (6-22); Blood Urea Nitrogen 19 mg/dL (7-17); Calcium 9.3 mg/dL (8.4-10.2); Carbon Dioxide 29 mmol/L (22-32); Chloride 102 mmol/L (98-107); Estimated Glomerular Filt Rate 56.9 mL/min (>60); Glucose 140 mg/dL (80-110); HEMOLYSIS < 15 (0-50); Magnesium 1.3 mg/dL (1.6-2.3); Potassium 3.4 mmol/L (3.4-5.1); Sodium 136 mmol/L (137-145)
--- NOTE | 2021-07-12 08:04 | P.PN_ITS ---
Subjective Subjective Date Patient Seen: 07/12/21 Interval history: She tells me that she lives in [place], was born in [place] and has a physician in [place], Dr. Cuevas. She is here for a new pulmonary embolus with right-sided chest pain that began a few days ago preceded by a left leg ?funny feeling. We discussed that her troponin of 0.603 down from 0.794 is being further evaluated with an echocardiogram. This could certainly be secondary to the right heart strain of the bilateral pulmonary emboli but cannot rule out acute coronary syndrome or non ST-elevation [place]. Exam Vital Signs (past 8 hours): - 07/12/21 03:39 Temperature 98.1 F Pulse Rate 82 Respiratory Rate 17 Blood Pressure 120/58 L Pulse Oximetry 96 Oxygen Delivery Method Room Air Oxygen Flow Rate 0 Narrative Exam Narrative: She is alert and oriented x3. No apparent distress. Heart is regular rhythm without murmur Lungs are clear to auscultation bilaterally Extremities have no ankle edema Objective Labs Result Diagrams: 07/12/21 06:20 07/12/21 06:20 Labs: Laboratory Results - last 24 hr 07/11/21 07/11/21 07/11/21 13:32 13:32 13:32 WBC 11.8 H RBC 4.30 Hgb 12.0 Hct 36.6 MCV 85.0 MCH 27.8 MCHC 32.7 RDW 13.8 Plt Count 285 Neut % (Auto) 83.5 H Lymph % (Auto) 7.4 L [place] % (Auto) 7.5 Eos % (Auto) 0.9 L Baso % (Auto) 0.7 Neut # (Auto) 9800 H Lymph # (Auto) 900 L [place] # (Auto) 900 Eos # (Auto) 100 Baso # (Auto) 100 PT 13.6 H INR 1.2 APTT Sodium 135 L Potassium 3.6 Chloride 99 Carbon Dioxide 28 BUN 21 H Creatinine 1.05 H Estimated GFR 52.0 L BUN/Creatinine Ratio 20.0 Glucose 318 H Hemoglobin A1c Lactate Calcium 9.4 Magnesium Total Bilirubin 1.0 AST 24 ALT 14 Alkaline Phosphatase 47 Total Creatine Kinase 77 CK-MB (CK-2) TNP CK-MB (CK-2) Rel Index TNP Troponin I 0.600 H* NT-Pro-B Natriuret Pep 2960 H Total Protein 7.8 Albumin 4.2 Globulin 3.6 Albumin/Globulin Ratio 1.2 Lipase 74 Procalcitonin Ur Bilirubin Confirm Urine RBC Urine WBC Ur Squamous Epith Cells Urine Bacteria Hyaline Casts Urine Mucus Ur Culture Indicated? SARS-CoV-2 (PCR) 07/11/21 07/11/21 07/11/21 13:32 13:32 13:32 WBC RBC Hgb Hct MCV MCH MCHC RDW Plt Count Neut % (Auto) Lymph % (Auto) [place] % (Auto) Eos % (Auto) Baso % (Auto) Neut # (Auto) Lymph # (Auto) [place] # (Auto) Eos # (Auto) Baso # (Auto) PT INR APTT Sodium Potassium Chloride Carbon Dioxide BUN Creatinine Estimated GFR BUN/Creatinine Ratio Glucose Hemoglobin A1c Lactate 2.5 H Calcium Magnesium Total Bilirubin AST ALT Alkaline Phosphatase Total Creatine Kinase CK-MB (CK-2) CK-MB (CK-2) Rel Index Troponin I NT-Pro-B Natriuret Pep Total Protein Albumin Globulin Albumin/Globulin Ratio Lipase Procalcitonin 0.10 Ur Bilirubin Confirm Urine RBC Urine WBC Ur Squamous Epith Cells Urine Bacteria Hyaline Casts Urine Mucus Ur Culture Indicated? SARS-CoV-2 (PCR) Negative 07/11/21 07/11/21 07/11/21 13:32 13:38 13:38 WBC RBC Hgb Hct MCV MCH MCHC RDW Plt Count Neut % (Auto) Lymph % (Auto) [place] % (Auto) Eos % (Auto) Baso % (Auto) Neut # (Auto) Lymph # (Auto) [place] # (Auto) Eos # (Auto) Baso # (Auto) PT INR APTT Sodium Potassium Chloride Carbon Dioxide BUN Creatinine Estimated GFR BUN/Creatinine Ratio Glucose Hemoglobin A1c 5.9 Lactate Calcium Magnesium Total Bilirubin AST ALT Alkaline Phosphatase Total Creatine Kinase CK-MB (CK-2) CK-MB (CK-2) Rel Index Troponin I NT-Pro-B Natriuret Pep Total Protein Albumin Globulin Albumin/Globulin Ratio Lipase Procalcitonin Ur Bilirubin Confirm Negative Urine RBC None seen Urine WBC 0-1/hpf Ur Squamous Epith Cells 0-1 /hpf Urine Bacteria None seen Hyaline Casts 1-5/lpf Urine Mucus 1+ H Ur Culture Indicated? Cult not indicated SARS-CoV-2 (PCR) 07/11/21 07/11/21 07/11/21 16:07 16:07 16:07 WBC RBC Hgb Hct MCV MCH MCHC RDW Plt Count Neut % (Auto) Lymph % (Auto) [place] % (Auto) Eos % (Auto) Baso % (Auto) Neut # (Auto) Lymph # (Auto) [place] # (Auto) Eos # (Auto) Baso # (Auto) PT 13.3 H INR 1.2 APTT 27 Sodium Potassium Chloride Carbon Dioxide BUN Creatinine Estimated GFR BUN/Creatinine Ratio Glucose Hemoglobin A1c Lactate 3.0 H Calcium Magnesium Total Bilirubin AST ALT Alkaline Phosphatase Total Creatine Kinase CK-MB (CK-2) CK-MB (CK-2) Rel Index Troponin I 0.794 H* NT-Pro-B Natriuret Pep Total Protein Albumin Globulin Albumin/Globulin Ratio Lipase Procalcitonin Ur Bilirubin Confirm Urine RBC Urine WBC Ur Squamous Epith Cells Urine Bacteria Hyaline Casts Urine Mucus Ur Culture Indicated? SARS-CoV-2 (PCR) 07/11/21 07/11/21 07/12/21 19:30 23:15 06:20 WBC 8.9 RBC 3.94 L Hgb 11.1 L Hct 32.8 L MCV 83.4 MCH 28.3 MCHC 33.9 RDW 13.9 Plt Count 253 Neut % (Auto) 66.5 Lymph % (Auto) 18.1 L [place] % (Auto) 11.6 Eos % (Auto) 2.9 Baso % (Auto) 0.9 Neut # (Auto) 5900 Lymph # (Auto) 1600 [place] # (Auto) 1000 H Eos # (Auto) 300 Baso # (Auto) 100 PT INR APTT 76 H* D Sodium Potassium Chloride Carbon Dioxide BUN Creatinine Estimated GFR BUN/Creatinine Ratio Glucose Hemoglobin A1c Lactate Calcium Magnesium Total Bilirubin AST ALT Alkaline Phosphatase Total Creatine Kinase CK-MB (CK-2) CK-MB (CK-2) Rel Index Troponin I 0.603 H* NT-Pro-B Natriuret Pep Total Protein Albumin Globulin Albumin/Globulin Ratio Lipase Procalcitonin Ur Bilirubin Confirm Urine RBC Urine WBC Ur Squamous Epith Cells Urine Bacteria Hyaline Casts Urine Mucus Ur Culture Indicated? SARS-CoV-2 (PCR) 07/12/21 07/12/21 06:20 06:20 WBC RBC Hgb Hct MCV MCH MCHC RDW Plt Count Neut % (Auto) Lymph % (Auto) [place] % (Auto) Eos % (Auto) Baso % (Auto) Neut # (Auto) Lymph # (Auto) [place] # (Auto) Eos # (Auto) Baso # (Auto) PT INR APTT 52 H D Sodium 136 L Potassium 3.4 Chloride 102 Carbon Dioxide 29 BUN 19 H Creatinine 0.97 Estimated GFR 56.9 L BUN/Creatinine Ratio 19.6 Glucose 140 H D Hemoglobin A1c Lactate Calcium 9.3 Magnesium 1.3 L Total Bilirubin AST ALT Alkaline Phosphatase Total Creatine Kinase CK-MB (CK-2) CK-MB (CK-2) Rel Index Troponin I NT-Pro-B Natriuret Pep Total Protein Albumin Globulin Albumin/Globulin Ratio Lipase Procalcitonin Ur Bilirubin Confirm Urine RBC Urine WBC Ur Squamous Epith Cells Urine Bacteria Hyaline Casts Urine Mucus Ur Culture Indicated? SARS-CoV-2 (PCR) PFSH Medical History Diabetes type 2, controlled Essential hypertension HLD (hyperlipidemia) Surgical History Hx of hysterectomy Family History Father Myocardial infarction Mother Lung cancer Social History household members: spouse Smoking Status: Never smoker alcohol intake: current Assessment & Plan Assessment & Plan narrative: Radha Bautista was admitted for treatment and management of a pulmonary embolism. 1. Unprovoked bilateral PE, acute, present on admission * Initially treated with a heparin drip and then changed to apixaban. * Cardiac monitoring * Complete echocardiogram report pending * May require an outpatient malignancy workup after discharge * Her description of left calf/left leg pre PE symptoms is suspicious for DVT 2. Essential hypertension, appears to be well controlled * Continue home dose lisinopril 20 mg p.o. daily 3. Diabetes type 2 well controlled * A1c is 5.9 * Continue Lantus 36 units at bedtime and low-dose correctional insulin scale * She normally takes Trulicity weekly as well as metformin and glipizide 4. Elevated troponin -Normal sinus rhythm rate 117 p.r. interval 132 QRS 90 QTC 507 T-wave inversions noted in V2 through V4 without ST elevations these are new from previous EKG in 2017 EKG 2. Heart rate 104 persistent T-wave inversions noted V2 through V [address] T changes or depressions T-wave inversion also noted in lead 2 and AVF -echocardiogram pending -troponin 0.794 on admission dropping to 0.603, follow, likely due to right heart strain but need to rule out ischemic heart disease. Dispo: Probable discharge to home on apixaban Code status: Full Code as discussed with the patient who identifies her Zoran Castro as her surrogate and POA. Time Spent With Patient Critical Care time: I spent a total of [] minutes of critical care time on this patient's care today; this time is exclusive of procedural time. Quality VTE Deep Vein Thrombosis/Pulmonary Embolism Present on Admission: Yes
[2021-07-12] MEDS: lisinopriL 20 MG TABLET PO (08:09)
[2021-07-12] MEDS: CITALOPRAM 10 MG TABLET 40 MG PO (08:09)
[2021-07-12] MEDS: APIXABAN 5 MG TABLET PO ×2 (08:09→21:11)
[2021-07-12] MEDS: INSULIN REGULAR 100 UNIT/ML 3 ML VIAL SUBCUT ×3 (08:12→17:04)
[2021-07-12 08:43] LABS: NT-proBNP (BNP-Adult 18+) 2130 pg/mL (<125)
[2021-07-12 09:09] LABS: Troponin I 0.356 ng/mL (0.01-0.034)
[2021-07-12] MEDS: MAGNESIUM SULFATE 2 GM/50 ML PIGGYBACK IV (09:10)
[2021-07-12] MEDS: POTASSIUM CHLORIDE 20 MEQ TAB 40 MEQ PO (09:10)
--- NOTE | 2021-07-12 16:21 | CM.DANOTE ---
DCP Assessment: Patient is a 71 yr old female who is here for Pulmonary Embolism. CM met with the patient at the bedside and explained role. Patient was A&O x4 during meeting. patient lives in a single level home with her Zoran who is her DPOA. patient states she is independent with all ADLs and drives at baseline. patient does not use any DME at her baseline and is planning on going home. I: [employer] Medicare and selfpay PCP: Emelina Cuevas Plan: DC home when medically stable patients will provide transportation home. No identified DC planning needs Cm department will follow to assist with any DC planning needs as they occur. Christine Bahena RNscraper burrer Discharge Planning/Care Management CM Discharge Assessment Start: 07/12/21 16:20 Freq: Status: Active Protocol: Document 07/12/21 16:20 HS (Rec: 07/12/21 16:21 HS [id number]) Discharge Planning Assessment Assigned Food Clerk Christine Bahena RN Case Mananger DPOA/Assigned Designee Name Zoran Castro - Contact Information [phone] Advance Directives? No History Provided By Patient,Medical Record Prior Living Arrangements House Household Members spouse Type of transporation used prior to Drives own vehicle admit Independent with ADL's Yes Is patient alert and oriented? Yes Caregiver for Another No Barriers to Discharge No Discharge Plan Home Referrals Initiated None needed Whiteboard Updated in Patient Room with Yes name and ext. # of Food Clerk Review Status In Process Next Review Type Continued Stay Review
--- NOTE | 2021-07-12 18:38 | DI.ECHO.S_ITS ---
[facility]---------+ [facility] +---------+ : : [address] : [address] : : : : [id number] : : : : Phone: [phone]+ Echocardiogram Report + + :Name: YANG NICOLE Study Date: 07/13/2021 Height: 66 in : :[facility] ReadingLocation: Weight: 193 lb : : Gender: Female BSA: 2.0 m2 : :: 1950 Age: 71 yrs BP: 119/67 mmHg: :Reason For Study: PULMONARY EMBOLI : : Performed By: Sravan Mccormack : :Referring: ABA WILKINS E : + + Interpretation Summary Normal sinus rhythm with occasional PAC's and PVC's. Normal LV size and wall thickness; low normal EF estimated at 50-55%. There is subtle mid-inferior hypokinesis; otherwise normal wall motion. Moderate RV enlargement with normal RV function. 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 No significant valvular abnormalities. Estimated PA systolic pressure is 21 mm Hg. Compared to prior study 01/17/2017 RV dilation is new; inferior hypokinesis is unchanged from prior. Procedure: A two-dimensional transthoracic echocardiogram with color flow and Doppler was performed. The study quality was technically good. Comparison is made with the echocardiogram of 01/18/17. The patient was in normal sinus rhythm during the exam. The patient had occasional PACs during the exam. The patient had occasional PVCs during the exam. Left Ventricle: The left ventricle is normal in size. There is normal left ventricular wall thickness. The ejection fraction is estimated to be 50-55%. Right Ventricle: The right ventricle is moderately dilated. The right ventricular systolic function is normal. Atria: Both atria are normal in size. The atrial septum is aneurysmal. There is no Doppler evidence for an atrial septal defect. Mitral Valve: The mitral valve is normal in structure and function. There is trace mitral regurgitation. Aortic Valve: The aortic valve is trileaflet. The aortic valve opens well. No aortic regurgitation is present. Tricuspid Valve: The tricuspid valve is normal in structure and function. There is trace tricuspid regurgitation. The right ventricular systolic pressure is estimated to be at least 21 mmHg based on an estimated right atrial pressure of 8 mm Hg. Pulmonic Valve: The pulmonic valve is normal in structure and function. There is trace pulmonic regurgitation. Great Vessels: The aortic root is normal size. The dimensions of the ascending aorta are normal. The pulmonary artery is normal size. The IVC is dilated (diameter is greater than 2.1 cm) yet it collapses greater than 50% with a sniff. This suggests a right atrial pressure of 8 mm Hg. Pericardium/ Pleura There is no pericardial effusion. There is an anterior echo-free space consistent with a fat pad. There is no pleural effusion. MMode/2D Measurements & Calculations LVIDd: 4.6 cm LVOT diam: 2.2 cm LVIDs: 2.7 cm Ao root diam: 3.1 cm FS: 39.9 % asc Aorta Diam: 3.3 cm EPSS: 0.88 cm Ao Arch Diam (Prox Trans): 2.4 cm IVSd: 1.4 cm LVPWd: 0.58 cm LV westfall. diameter/BSA (cm/m^2): 2.3 LV sys. diameter/BSA (cm/m^2): 1.4 LA A2 area: 15.2 cm2 RA long axis: 3.9 cm LA A4 area: 16.7 cm2 RA area: 11.8 cm2 LA length (vol): 5.4 cm RA vol: 30.8 ml LA vol: 39.7 ml RA : 15.6 ml/m2 LA vol index: 20.1 ml/m2 IVC diam: 2.2 cm RVD1 (basal): 3.8 cm RVD2 (mid): 4.2 cm TAPSE: 1.8 cm Doppler Measurements & Calculations Ao V2 max: 165.7 cm/sec LVOT Max Marcelo: 100.5 cm/sec Ao V2 mean: 124.0 cm/sec LV V1 max P.0 mmHg Ao max P.0 mmHg LV V1 VTI: 19.6 cm Ao mean P.7 mmHg MERI(I,D): 2.7 cm2 Ao V2 VTI: 27.3 cm MERI(V,D): 2.3 cm2 sev ratio: 0.72 MERI indexed to BSA (cm^2/m^2): 1.4 MV E max marcelo: 54.9 cm/sec TR max marcelo: 181.3 cm/sec MV A max marcelo: 106.8 cm/sec TR max P.2 mmHg MV E/A: 0.51 PA V2 max: 77.3 cm/sec Med Peak E' Marcelo: 3.7 cm/sec PA V2 mean: 54.7 cm/sec E/E' med: 14.9 PA mean P.4 mmHg Lat Peak E' Marcelo: 6.3 cm/sec PA pr(Accel): 17.3 mmHg E/E' lat: 8.7 E/e' average: 11.8 MV dec time: 0.21 sec SV(LVOT): 72.9 ml Electronically signed by: Shreya Saravia M.D. on Reading Physician:07/13/2021 02:09 PM
[2021-07-12] MEDS: OXYCODONE IR 5 MG TABLET PO (21:11)
[2021-07-12] MEDS: ATORVASTATIN 20 MG TABLET PO (21:12)
[2021-07-12] MEDS: INSULIN GLARGINE 100 UNIT/ML 3ML PEN 36 UNIT SUBCUT (21:12)
[2021-07-13] VITALS (8 sets, daily range): BP systolic 96–135; BP diastolic 59–69; PULSE 82–96; RESP 17–19; TEMP 35.7–37.3; O2SAT 92–100
[2021-07-13 06:09] LABS: Add Manual Diff / Slide Review NO; Basophils Absolute Auto 100 /uL (0-100); Basophils Percent Auto 1.1 % (0-2); Eosinophils Absolute Auto 300 /uL (0-450); Eosinophils Percent Auto 4.7 % (2-4); Hematocrit 32.9 % (36-46); Hemoglobin 10.8 g/dL (12.0-16.0); Lymphocytes Absolute Auto 1400 /uL (1100-4500); Lymphocytes Percent Auto 19.7 % (25-40); Mean Corpuscular HGB Conc 32.9 % (30-36); Mean Corpuscular Hemoglobin 27.9 PG (26-34); Mean Corpuscular Volume 84.8 fL (80-100); Monocytes Absolute Auto 800 /uL (0-900); Monocytes Percent Auto 10.6 % (3-14); Neutrophils Absolute Auto 4700 /uL (1500-7000); Neutrophils Percent Auto 63.9 % (50-75); Platelet Count 272 X10^3/uL (150-400); Red Blood Cell Count 3.88 X10^6/uL (4.0-5.2); Red Cell Distribution Width 13.9 % (11.6-14.8); White Blood Cell Count 7.3 X10^3/uL (4.5-11.0)
[2021-07-13 07:20] LABS: Troponin I 0.128 ng/mL (0.01-0.034)
[2021-07-13 08:05] LABS: BUN Creatinine Ratio 23.2 (6-22); Blood Urea Nitrogen 22 mg/dL (7-17); Calcium 9.1 mg/dL (8.4-10.2); Carbon Dioxide 26 mmol/L (22-32); Chloride 106 mmol/L (98-107); Estimated Glomerular Filt Rate 58.3 mL/min (>60); Glucose 124 mg/dL (80-110); HEMOLYSIS < 15 (0-50); Magnesium 1.7 mg/dL (1.6-2.3); Potassium 4.1 mmol/L (3.4-5.1); Sodium 137 mmol/L (137-145)
[2021-07-13] MEDS: APIXABAN 5 MG TABLET PO (08:16)
[2021-07-13] MEDS: CITALOPRAM 10 MG TABLET 40 MG PO (08:18)
[2021-07-13] MEDS: lisinopriL 20 MG TABLET PO (08:18)
[2021-07-13] MEDS: INSULIN REGULAR 100 UNIT/ML 3 ML VIAL SUBCUT ×2 (12:15→16:49)
--- NOTE | 2021-07-13 15:09 | P.PN_ITS ---
Subjective Subjective Date Patient Seen: 07/13/21 Time Patient Seen: 08:00 Interval history: Today she feels short of breath. She has right sided chest pain especially with breathing. She felt light headed earlier today. Exam Vital Signs (past 8 hours): - 07/13/21 07:35 07/13/21 11:00 07/13/21 13:00 Temperature 97.6 F 97.1 F L 99.2 F Pulse Rate 84 82 91 H Respiratory Rate 18 17 19 Blood Pressure 96/61 119/67 135/68 Pulse Oximetry 100 97 97 Fraction of Inspired Oxygen 0 Oxygen Delivery Method Room Air Oxygen Flow Rate 0 Narrative Exam Narrative: She is alert and oriented x3.? No apparent distress.? Heart is regular rhythm without murmur Lungs are clear to auscultation bilaterally Extremities have no ankle edema Objective Labs Result Diagrams: 07/13/21 04:56 07/13/21 04:56 Labs: Laboratory Results - last 24 hr 07/13/21 07/13/21 07/13/21 04:56 04:56 04:56 WBC 7.3 RBC 3.88 L Hgb 10.8 L Hct 32.9 L MCV 84.8 MCH 27.9 MCHC 32.9 RDW 13.9 Plt Count 272 Neut % (Auto) 63.9 Lymph % (Auto) 19.7 L Crawford % (Auto) 10.6 Eos % (Auto) 4.7 H Baso % (Auto) 1.1 Neut # (Auto) 4700 Lymph # (Auto) 1400 Crawford # (Auto) 800 Eos # (Auto) 300 Baso # (Auto) 100 Sodium 137 Potassium 4.1 Chloride 106 Carbon Dioxide 26 BUN 22 H Creatinine 0.95 Estimated GFR 58.3 L BUN/Creatinine Ratio 23.2 H Glucose 124 H Calcium 9.1 Magnesium 1.7 Troponin I 0.128 H* PFSH Medical History Diabetes type 2, controlled Essential hypertension HLD (hyperlipidemia) Surgical History Hx of hysterectomy Family History Father Myocardial infarction Mother Lung cancer Social History household members: spouse Smoking Status: Never smoker alcohol intake: current Assessment & Plan Assessment & Plan narrative: Radha Bautista was admitted for treatment and management of a pulmonary embolism. 1. Unprovoked bilateral PE, acute, present on admission -Initially treated with a heparin drip and then changed to apixaban. -Cardiac monitoring -ECHO showed dilated RV with preserved function -May require an outpatient malignancy workup after discharge 2. Essential hypertension, appears to be well controlled -Continue home dose lisinopril 20 mg p.o. daily 3. Diabetes type 2 well controlled -A1c is 5.9 -Continue Lantus 36 units at bedtime and low-dose correctional insulin scale -She normally takes Trulicity weekly as well as metformin and glipizide 4.?Type 2 CT -Normal sinus rhythm rate 117 p.r. interval 132 QRS 90 QTC 507 T-wave inversions noted in V2 through V4 without ST elevations these are new from previous EKG in 2017 EKG 2. Heart rate 104 persistent T-wave inversions noted V2 through V [address] T changes or depressions T-wave inversion also noted in lead 2 and AVF -troponin 0.794 on admission dropping to 0.603, follow, due to cardiac demand from PE -no need for inpatient stress test, can consider outpatient stress test Time Spent With Patient Critical Care time: I spent a total of [] minutes of critical care time on this patient's care today; this time is exclusive of procedural time. Quality VTE Deep Vein Thrombosis/Pulmonary Embolism Present on Admission: Yes
[2021-07-13] MEDS: ATORVASTATIN 20 MG TABLET PO (22:08)
[2021-07-13] MEDS: APIXABAN 5 MG TABLET 10 MG PO (22:08)
[2021-07-13] MEDS: INSULIN GLARGINE 100 UNIT/ML 3ML PEN 36 UNIT SUBCUT (22:09)
[2021-07-13] MEDS: OXYCODONE IR 5 MG TABLET PO (22:14)
[2021-07-13] MEDS: SENNOSIDES 8.6 MG TABLET PO (22:18)
[2021-07-14 00:32] VITALS: BP 110/66; PULSE 82; RESP 18; TEMP 36.2; O2SAT 98
[2021-07-14 05:05] VITALS: BP 103/62; PULSE 90; RESP 19; TEMP 36.3; O2SAT 94
[2021-07-14 06:07] LABS: Hematocrit 32.3 % (36-46); Hemoglobin 10.8 g/dL (12.0-16.0); Mean Corpuscular HGB Conc 33.5 % (30-36); Mean Corpuscular Hemoglobin 28.2 PG (26-34); Mean Corpuscular Volume 84.3 fL (80-100); Platelet Count 305 X10^3/uL (150-400); Red Blood Cell Count 3.83 X10^6/uL (4.0-5.2); Red Cell Distribution Width 13.3 % (11.6-14.8); White Blood Cell Count 6.9 X10^3/uL (4.5-11.0)
[2021-07-14 06:17] LABS: Blood Urea Nitrogen 20 mg/dL (7-17); Calcium 9.3 mg/dL (8.4-10.2); Carbon Dioxide 27 mmol/L (22-32); Chloride 104 mmol/L (98-107); Glucose 139 mg/dL (80-110); HEMOLYSIS < 15 (0-50); Magnesium 1.4 mg/dL (1.6-2.3); Potassium 4.3 mmol/L (3.4-5.1); Sodium 137 mmol/L (137-145)
[2021-07-14] MEDS: SODIUM CHLORIDE 0.9% FLUSH 10 ML IV ×2 (06:28→08:49)
[2021-07-14 07:57] VITALS: BP 108/62; PULSE 76; RESP 16; TEMP 36.8; O2SAT 96
--- NOTE | 2021-07-14 08:30 | P.DS_ITS ---
History of Present Illness History of Present Illness Chief complaint: Rib Pain/SOB Narrative: Radha Bautista is?71-year-old female with history of diabetes type 2, hypertension, and? hyperlipidemia who presented to the ED with a 3-day of right sided chest pain.? It is definitely worse when she takes deep breaths in fact hurts when she takes deep breaths.? When she walks and breathes it hurts and she feels short of breath.? The pain radiates front to back.? Approximately a week and a half ago, she had one episode of left sided chest pain that felt like a lightning bolt and immediately resolved. She has not traveled anywhere, or been inactive, laid up for any period of time, denies air travel or long car trips.? She denies any cough or palpitations, denies nausea or vomiting, dysurea, diarrhea or constipation.? This is never happened to her before.? She denies any recent injury or surgery.? In fact the last couple of days she has not done very much because it hurts so bad.? Chest x-ray indicated bilateral ?streaky? densities likely reflecting atelectasis.? CTA of the chest indicated the following findings:? 1.?Bilateral pulmonary embolism demonstrated within all lobes involving segmental and subsegmental branches.? No definite evidence of right heart strain. 2. Peripheral ground-glass opacity posteriorly in the right lower lobe is suspicious for a developing pulmonary infarct given the occluded subsegmental pulmonary arteries extending to this region.?3. Small right pleural ef fusion.The emergency department did start her on a heparin drip.? They consulted with Cardiology and they were advised that there would not likely be any invasive intervention and that she could be treated here. She is afebrile, blood pressure 125/72, heart rate 99, respiratory rate 18, oxygen saturation of 97% on room air, she weighs 87.5 kg with a BMI of 31.1.? She does have a mildly elevated WBC of 11.8, with a mild left shift of 90 100, INR is 1.2, sodium 135, BUN 21, creatinine 1.05 with an EGFR 52 which is abnormal for her, her glucose was 318, A1c 5.9, lactate 3.0, troponin 0.603 which is to trending downward from her peak, proBNP 2960, procalcitonin is negative at 0.10, UA is negative for UTI, COVID-19 PCR is negative. Discharge Providers Provider Date of admission: 07/11/21 17:10 Discharge Date: 07/14/21 Primary care physician: Emelina Cuevas MD Discharge provider: Dayton Toscano MD Summary Hospital Course Discharge Diagnosis: 1. Bilateral PEs 2. Type 2 SC 3. Diabetes, Type 2 4. HTN Hospital Course: Ms. Hdez was admitted with shortness of breath and chest pain, found to have multiple PEs. She was hemodynamically stable, but did have an elevated troponin and a dilated RV. The RV had preserved function. She was not indicated for thrombolysis after discussion with cardiology. She was started on anticoagulation and felt improved. Her troponin decreased and was thought elevated secondary to the PE. On day of discharge she was able to go home with no oxygen, and given a script for apixaban. She should have further consideration of workup for etiology of PEs. Discharge time 32 minutes Exam Vital Signs (past 8 hours): Fraction of Inspired Oxygen 0 Oxygen Delivery Method Room Air Oxygen Flow Rate 0 Narrative Exam Narrative: She is alert and oriented x3.? No apparent distress.? Heart is regular rhythm without murmur Lungs are clear to auscultation bilaterally Extremities have no ankle edema Objective Labs Result Diagrams: 07/14/21 05:39 07/14/21 05:39 Labs: Laboratory Results - last 24 hr 07/14/21 07/14/21 05:39 05:39 WBC 6.9 RBC 3.83 L Hgb 10.8 L Hct 32.3 L MCV 84.3 MCH 28.2 MCHC 33.5 RDW 13.3 Plt Count 305 Sodium 137 Potassium 4.3 Chloride 104 Carbon Dioxide 27 BUN 20 H Creatinine 1.00 Estimated GFR 55.0 L BUN/Creatinine Ratio 20.0 Glucose 139 H Calcium 9.3 Magnesium 1.4 L PFSH Medical History Diabetes type 2, controlled Essential hypertension HLD (hyperlipidemia) Surgical History Hx of hysterectomy Family History Father Myocardial infarction Mother Lung cancer Social History household members: spouse Smoking Status: Never smoker alcohol intake: current Discharge Plan Discharge Plan Patient Disposition: Home Provider Discharge Comment: Ms. Hdez came in to the hospital with chest pain and shortness of breath. She was found to have pulmonary emboli (blood clots in lungs). She was started on blood thinners and felt improved. She also had an elevated troponin (enzyme from the heart) which was likely caused by the heart straining by pushing blood through the clots. This improved in the hospital. She should follow up with her primary care doctor in 1-2 weeks. Discharge orders & Medications Prescriptions: New Eliquis 5 mg Tablet 10 mg PO BID 10 Days Qty: 40 0RF apixaban 5 mg tablet 5 mg PO BID Qty: 60 0RF Rx Instructions: please start after finishing the 10mg BID dose Continued glipizide 10 MG tablet extended release 24hr 10 mg PO BID Qty: 60 2RF lisinopril-hydrochlorothiazide 20 MG/12.5 MG tablet 1 tab PO BID Qty: 0 0RF citalopram 40 MG tablet 40 mg PO QDAY Qty: 0 0RF NAPROXEN (NAPROSYN) 250 mg PO BIDCC Qty: 60 0RF metformin [Glucophage XR] 500 MG tablet extended release 24 hr 500 mg PO BID Qty: 60 0RF rosuvastatin [Crestor] 10 MG tablet 10 mg PO HS Qty: 30 0RF Trulicity 0.75 mg/0.5 mL pen injector 0.75 mg SUBCUT WEEKLY 0RF Label Comments: ADMINISTER 0.75 MG UNDER THE SKIN EVERY 7 DAYS Follow up/Referrals: Emelina Cuevas MD [Primary Care Provider] - (*Appt on Wednesday @0840 with . [phone] ) Visit Report/Discharge Packet Instructions: Pulmonary Embolism Discharge Data Primary Care Provider: Emelina Cuevas Quality VTE Deep Vein Thrombosis/Pulmonary Embolism Present on Admission: Yes
[2021-07-14] MEDS: INSULIN REGULAR 100 UNIT/ML 3 ML VIAL SUBCUT (08:39)
[2021-07-14] MEDS: APIXABAN 5 MG TABLET 10 MG PO (08:42)
[2021-07-14] MEDS: lisinopriL 20 MG TABLET PO (08:42)
[2021-07-14] MEDS: SENNOSIDES 8.6 MG TABLET PO (08:42)
[2021-07-14] MEDS: polyethylene glycoL 3350 17 GM POWD.PACK PO (08:43)
[2021-07-14] MEDS: CITALOPRAM 10 MG TABLET 40 MG PO (08:43)
[2021-07-14 08:44] VITALS: BP 123/73; PULSE 83
[2021-07-14] MEDS: MAGNESIUM SULFATE 2 GM/50 ML PIGGYBACK IV (09:26)
[2021-07-14 10:33] VITALS: O2SAT 95
[2021-07-14 11:54] VITALS: BP 121/70; PULSE 90; RESP 18; O2SAT 95
== END 2021-07-14 11:58 | disposition home or self-care (01) | DRG 175 ==
LOC: ED 17:10 → AC 07-12 12:37
PROVIDERS: Family Medicine; Internal Medicine; Nurse Practitioner Family; Admitting Provider Internal Medicine; Emergency Provider Emergency Medicine; PCP Internal Medicine; Referring Provider Emergency Medicine; Visit Provider Internal Medicine
DX: I26.99 Other pulmonary embolism without acute cor pulmonale (principal); I21.A1 Myocardial infarction type 2; E83.42 Hypomagnesemia; I10 Essential (primary) hypertension; E11.9 Type 2 diabetes mellitus without complications; E78.5 Hyperlipidemia, unspecified; Z79.84 Long term (current) use of oral hypoglycemic drugs; Z20.822 Contact with and (suspected) exposure to COVID-19
CPT/HCPCS: 36415; 71046; 71275; 80048; 80053; 81003; 81015; 82550; 82962; 83036; 83605; 83690; 83735; 83880; 84145; 84484; 85025; 85027; 85610; 85730; 87040; 87635; 93005; 93010; 93306; 94760; 94762; 96374; 96376; 99284; C9803; J1644; J3475; Q9967

== ENCOUNTER 2024-03-30 11:52 | Emergency (ER) | payer MEDICARE, SELFPAY ==
[2021-07-11 20:47] VITALS: BMI 31.1
[2024-03-30] VITALS (35 sets, daily range): BP systolic 111–158; BP diastolic 53–92; PULSE 63–135; RESP 12–26; TEMP 36.6; O2SAT 91–100; BMI 23.9
--- NOTE | 2024-03-30 11:53 | DI.RAD.S_ITS ---
PROCEDURE: XR CHEST 1V INDICATIONS: chest pain TECHNIQUE: One view of the chest was acquired. COMPARISON: Located Within [facility], CR, XR CHEST 2V, 07/11/2021, 12:54. FINDINGS: Surgical changes and devices: None. Lungs and pleura: Lungs are clear. No pleural effusions or pneumothorax. Mediastinum: Mediastinal contours appear normal. Heart size is normal. Bones and chest wall: No suspicious bony lesions. Overlying soft tissues appear unremarkable. IMPRESSION: No acute cardiopulmonary abnormality is seen. Dictated by: Caitlyn Harrington M.D. on 03/30/2024 at 13:08 Approved by: Caitlyn Harrington M.D. on 03/30/2024 at 13:08
--- NOTE | 2024-03-30 11:53 | EKG_ITS ---
[address] [address] Test Date: 2024-03-30 Pat Name: Radha Hdez Department: Room: Gender: Female Cook Soup: BLANE : 1950 Requested By: Order Number: [id number] Reading MD: Elie Thibodeaux Measurements Intervals [place] Rate: 63 P: 53 TN: 144 QRS: 30 QRSD: 78 T: 14 QT: 424 QTc: 433 Interpretive Statements Normal sinus rhythm Electronically Signed On 03-30-2024 17:32:30 PST by Elie Thibodeaux
[2024-03-30 12:21] LABS: Add Manual Diff / Slide Review NO; Basophils Absolute Auto 100 /uL (0-100); Basophils Percent Auto 0.9 % (0-2); Eosinophils Absolute Auto 100 /uL (0-450); Eosinophils Percent Auto 1.2 % (2-4); Hematocrit 39.8 % (36-46); Hemoglobin 13.2 g/dL (12.0-16.0); Lymphocytes Absolute Auto 1900 /uL (1100-4500); Lymphocytes Percent Auto 22.8 % (25-40); Mean Corpuscular HGB Conc 33.1 % (30-36); Mean Corpuscular Hemoglobin 28.4 PG (26-34); Mean Corpuscular Volume 85.7 fL (80-100); Monocytes Absolute Auto 500 /uL (0-900); Monocytes Percent Auto 5.6 % (3-14); Neutrophils Absolute Auto 5900 /uL (1500-7000); Neutrophils Percent Auto 69.5 % (50-75); Platelet Count 316 X10^3/uL (150-400); Red Blood Cell Count 4.64 X10^6/uL (4.0-5.2); Red Cell Distribution Width 14.3 % (11.6-14.8); White Blood Cell Count 8.5 X10^3/uL (4.5-11.0)
--- NOTE | 2024-03-30 12:22 | ED_ITS ---
HPI - Syncope <Cecilio Bianchi MD - Last Filed: 03/31/24 07:56> General Chief Complaint: Syncope Stated Complaint: Near Syncope/ Abd. Pain Time Seen by Provider: 03/30/24 11:58 Source: patient and EMS Mode of arrival: EMS Limitations: no limitations History of Present Illness HPI narrative: 74-year-old female with history of previous pulmonary embolus 2021, no longer on chronic anticoagulation, no known history of coronary artery disease, but has history of diabetes and hypertension, woke up feeling well this morning, was cooking Thanksgiving meal 930, about 1030 was taking the turkey out, then while working in the kitchen started to feel generalized weakness, felt central abdominal discomfort, nausea, diaphoresis, sudden urgency to defecate but did not actually defecate, no incontinence of urine or stool, no shaking symptoms. No weakness to face arm or leg. [place] like she might pass out but did not pass out. No associated chest pain or shortness of breath. No associated palpitation irregular or fast heart rate sensation. No recent trauma falls or injuries. No recent changes in medication. No recent fevers, chills, cough, sore throat, vomiting, diarrhea, black stools, red stools. No frequency of urination or urgency to urinate, no painful urination. Denies back pain, denies flank pain, denies posterior neck pain. Denies visual changes, scotomata, blurred vision, double vision. Denies headache. No problems moving her neck. Related Data Home Medications Medication Instructions Recorded Confirmed citalopram 40 mg tablet 40 mg PO QDAY ##0 10/28/11 07/11/21 lisinopril 20 1 tab PO BID ##0 10/28/11 07/11/21 mg-hydrochlorothiazide 12.5 mg tablet metformin 500 mg tablet,extended 500 mg PO BID #60 tabs 01/17/17 07/11/21 release 24 hr (Glucophage XR) dulaglutide 0.75 mg/0.5 mL 0.75 mg SUBCUT WEEKLY 07/11/21 07/11/21 subcutaneous pen injector (Trulicity) Previous Rx's Medication Instructions Recorded glipizide 10 mg tablet, extended 10 mg PO BID ##60 10/28/11 release 24 hr NAPROXEN (NAPROSYN) 250 mg PO BIDCC ##60 11/10/11 rosuvastatin 10 mg tablet (Crestor) 10 mg PO HS ##30 01/18/17 apixaban 5 mg tablet 5 mg PO BID #60 tabs 07/14/21 Allergies Allergy/AdvReac Type Severity Reaction Status Date / Time codeine [CODEINE] Allergy Mild Verified 07/11/21 12:51 Review of Systems <Cecilio Bianchi MD - Last Filed: 03/31/24 07:56> Review of Systems Narrative: GENERAL: Well-developed patient, in mild distress. HEAD: Atraumatic. Normocephalic. EYES: Pupils equal round and reactive. Extraocular motions intact. No scleral icterus. No injection or drainage. ENT: Nose without bleeding, purulent drainage. Throat without erythema, tonsillar hypertrophy or exudate. Airway patent. NECK: Trachea midline. Non tender CARDIOVASCULAR: Regular rate and rhythm without murmurs, gallops, or rubs. RESPIRATORY: Clear to auscultation. Breath sounds equal bilaterally. No wheezes, rales, or rhonchi. GASTROINTESTINAL: Abdomen soft, non-tender, nondistended. EXTREMITIES: No edema or joint tenderness. BACK: Nontender without deformity or crepitance. No flank tenderness. NEURO: AOx3. Motor functions grossly nonfocal SKIN: No rash or erythema of visible areas Patient History <Cecilio Bianchi MD - Last Filed: 03/31/24 07:56> Medical History Diabetes type 2, controlled Essential hypertension HLD (hyperlipidemia) Surgical History Hx of hysterectomy Family History Father Myocardial infarction Mother Lung cancer Social History household members: spouse Smoking Status: Never smoker alcohol intake: current Smoking Status: Never smoker alcohol intake frequency: other Substance Use Type: does not use Exam <Cecilio Bianchi MD - Last Filed: 03/31/24 07:56> Narrative Exam Narrative: GENERAL: Well-developed patient, in mild distress. HEAD: Atraumatic. Normocephalic. EYES: Pupils equal round and reactive. Extraocular motions intact. No scleral icterus. No injection or drainage. ENT: Nose without bleeding, purulent drainage. Throat without erythema, tonsillar hypertrophy or exudate. Airway patent. NECK: Trachea midline. Non tender CARDIOVASCULAR: Regular rate and rhythm without murmurs, gallops, or rubs. RESPIRATORY: Clear to auscultation. Breath sounds equal bilaterally. No wheezes, rales, or rhonchi. GASTROINTESTINAL: Mild tenderness periumbilical, no obvious ventral hernias. No guarding or rebound tenderness, bowel tones normal. EXTREMITIES: No edema or joint tenderness. BACK: Nontender without deformity or crepitance. No flank tenderness. NEURO: AOx3. Motor functions grossly nonfocal Initial Vital Signs Initial Vital Signs: Vital Signs Temperature 97.9 F 03/30/24 12:00 Pulse Rate 68 03/30/24 12:00 Respiratory Rate 18 03/30/24 12:00 Blood Pressure 122/70 03/30/24 12:00 Pulse Oximetry 99 03/30/24 12:00 Oxygen Delivery Method Room Air 03/30/24 12:00 [facility] Head: normal to inspection and atraumatic Ears: hearing grossly normal bilaterally and external ears normal Nose: external nose normal Face and sinus: normal facial exam Mouth: oral mucosae normal Throat: posterior oropharynx normal Eyes General: Yes appearance normal, both eyes and all related structures Sclera: sclerae normal Neck Neck: normal visual inspection Chest Chest: normal inspection of the chest Resp Effort & Inspection: normal respiratory effort and able to speak in complete sentences Auscultation: clear to auscultation bilaterally Cardio Rate: regular rate Rhythm: regular rhythm Heart Sounds: no murmurs Pulses: normal peripheral pulses GI Inspection: normal to inspection and non-distended Palpation: soft and tender (central mid abdomen, no obvious ventral hernias) Auscultation: normal bowel sounds Skin General: no rashes or lesions noted Neuro General: patient alert and no focal motor deficits Speech: speech normal Extrem General: normal to inspection and no pedal edema Psych Appearance: grossly normal Affect: normal affect <Abrahan Vasquez, DO - Last Filed: 03/30/24 22:38> Initial Vital Signs Initial Vital Signs: Vital Signs Temperature 97.9 F 03/30/24 12:00 Pulse Rate 68 03/30/24 12:00 Respiratory Rate 18 03/30/24 12:00 Blood Pressure 122/70 03/30/24 12:00 Pulse Oximetry 99 03/30/24 12:00 Oxygen Delivery Method Room Air 03/30/24 12:00 Course <Cecilio Bianchi MD - Last Filed: 03/31/24 07:56> Orders Ordered: Discontinued Medications Acetaminophen (Acetaminophen 325 Mg Tablet) 650 mg PO NOW ONE Stop: 03/30/24 21:50 Last Admin: 03/30/24 21:54 Dose: 650 mg Documented By: TRENTON Aspirin (Aspirin 81 Mg Chew Tab) 324 mg PO NOW ONE Stop: 03/30/24 11:54 Last Admin: 03/30/24 12:59 Dose: Not Given Documented By: MATT Magnesium Sulfate (Magnesium Sulfate) 2 gm in 50 mls @ 150 mls/hr IV NOW ONE Stop: 03/30/24 14:25 Last Infusion: 03/30/24 17:20 Dose: Infused Documented By: MATT Co-signed By: ALEX Admin: 03/30/24 15:39 Dose: 150 mls/hr Documented By: BRIAN Co-signed By: ALEX Vital Signs Vital signs: Vital Signs - 8 hr 03/30/24 15:45 03/30/24 15:46 03/30/24 15:46 Pulse Rate 71 72 Respiratory Rate Blood Pressure 138/65 Pulse Oximetry 100 100 Oxygen Delivery Method 03/30/24 16:00 03/30/24 16:02 03/30/24 16:02 Pulse Rate 74 74 Respiratory Rate Blood Pressure 135/58 L Pulse Oximetry 98 100 Oxygen Delivery Method 03/30/24 16:16 03/30/24 16:16 03/30/24 16:30 Pulse Rate 75 67 Respiratory Rate Blood Pressure 148/65 H Pulse Oximetry 97 99 Oxygen Delivery Method 03/30/24 16:30 03/30/24 16:45 03/30/24 16:45 Pulse Rate 68 Respiratory Rate Blood Pressure 136/56 L 132/63 Pulse Oximetry 97 Oxygen Delivery Method 03/30/24 17:00 03/30/24 17:00 03/30/24 17:22 Pulse Rate 68 Respiratory Rate Blood Pressure 152/65 H 158/69 H Pulse Oximetry 100 Oxygen Delivery Method 03/30/24 17:22 03/30/24 17:30 03/30/24 17:30 Pulse Rate 68 63 Respiratory Rate Blood Pressure 148/65 H Pulse Oximetry 99 100 Oxygen Delivery Method 03/30/24 18:00 03/30/24 18:01 03/30/24 18:01 Pulse Rate 66 67 Respiratory Rate Blood Pressure 152/73 H Pulse Oximetry 99 98 Oxygen Delivery Method 03/30/24 18:30 03/30/24 18:30 03/30/24 19:00 Pulse Rate 65 Respiratory Rate Blood Pressure 148/66 H 155/92 H Pulse Oximetry 100 Oxygen Delivery Method 03/30/24 19:00 03/30/24 19:30 03/30/24 19:30 Pulse Rate 74 67 Respiratory Rate 16 Blood Pressure 144/65 H Pulse Oximetry 100 99 Oxygen Delivery Method Room Air 03/30/24 19:38 03/30/24 19:38 03/30/24 20:00 Pulse Rate 118 H Respiratory Rate Blood Pressure 144/66 H 132/62 Pulse Oximetry 91 Oxygen Delivery Method 03/30/24 20:00 03/30/24 20:30 03/30/24 20:30 Pulse Rate 67 65 Respiratory Rate 18 Blood Pressure 118/58 L Pulse Oximetry 96 93 Oxygen Delivery Method 03/30/24 21:00 03/30/24 21:00 Pulse Rate 66 Respiratory Rate 16 Blood Pressure 124/58 L Pulse Oximetry 95 Oxygen Delivery Method Room Air <Abrahan Vasquez DO - Last Filed: 03/30/24 22:38> Orders Ordered: Discontinued Medications Acetaminophen (Acetaminophen 325 Mg Tablet) 650 mg PO NOW ONE Stop: 03/30/24 21:50 Last Admin: 03/30/24 21:54 Dose: 650 mg Documented By: TRENTON Aspirin (Aspirin 81 Mg Chew Tab) 324 mg PO NOW ONE Stop: 03/30/24 11:54 Last Admin: 03/30/24 12:59 Dose: Not Given Documented By: MATT Magnesium Sulfate (Magnesium Sulfate) 2 gm in 50 mls @ 150 mls/hr IV NOW ONE Stop: 03/30/24 14:25 Last Infusion: 03/30/24 17:20 Dose: Infused Documented By: RB Co-signed By: ALEX Admin: 03/30/24 15:39 Dose: 150 mls/hr Documented By: BRIAN Co-signed By: ALEX Vital Signs Vital signs: Vital Signs - 8 hr 03/30/24 15:45 03/30/24 15:46 03/30/24 15:46 Pulse Rate 71 72 Respiratory Rate Blood Pressure 138/65 Pulse Oximetry 100 100 Oxygen Delivery Method 03/30/24 16:00 03/30/24 16:02 03/30/24 16:02 Pulse Rate 74 74 Respiratory Rate Blood Pressure 135/58 L Pulse Oximetry 98 100 Oxygen Delivery Method 03/30/24 16:16 03/30/24 16:16 03/30/24 16:30 Pulse Rate 75 67 Respiratory Rate Blood Pressure 148/65 H Pulse Oximetry 97 99 Oxygen Delivery Method 03/30/24 16:30 03/30/24 16:45 03/30/24 16:45 Pulse Rate 68 Respiratory Rate Blood Pressure 136/56 L 132/63 Pulse Oximetry 97 Oxygen Delivery Method 03/30/24 17:00 03/30/24 17:00 03/30/24 17:22 Pulse Rate 68 Respiratory Rate Blood Pressure 152/65 H 158/69 H Pulse Oximetry 100 Oxygen Delivery Method 03/30/24 17:22 03/30/24 17:30 03/30/24 17:30 Pulse Rate 68 63 Respiratory Rate Blood Pressure 148/65 H Pulse Oximetry 99 100 Oxygen Delivery Method 03/30/24 18:00 03/30/24 18:01 03/30/24 18:01 Pulse Rate 66 67 Respiratory Rate Blood Pressure 152/73 H Pulse Oximetry 99 98 Oxygen Delivery Method 03/30/24 18:30 03/30/24 18:30 03/30/24 19:00 Pulse Rate 65 Respiratory Rate Blood Pressure 148/66 H 155/92 H Pulse Oximetry 100 Oxygen Delivery Method 03/30/24 19:00 03/30/24 19:30 03/30/24 19:30 Pulse Rate 74 67 Respiratory Rate 16 Blood Pressure 144/65 H Pulse Oximetry 100 99 Oxygen Delivery Method Room Air 03/30/24 19:38 03/30/24 19:38 03/30/24 20:00 Pulse Rate 118 H Respiratory Rate Blood Pressure 144/66 H 132/62 Pulse Oximetry 91 Oxygen Delivery Method 03/30/24 20:00 03/30/24 20:30 03/30/24 20:30 Pulse Rate 67 65 Respiratory Rate 18 Blood Pressure 118/58 L Pulse Oximetry 96 93 Oxygen Delivery Method 03/30/24 21:00 03/30/24 21:00 Pulse Rate 66 Respiratory Rate 16 Blood Pressure 124/58 L Pulse Oximetry 95 Oxygen Delivery Method Room Air MDM - Syncope <Cecilio Bianchi MD - Last Filed: 03/31/24 07:56> Lab Data Attestation: I reviewed the patient's lab results. Lab results narrative: White blood cell count 8500, hemoglobin 13.2, platelets adequate. Basic metabolic panel unremarkable. Liver functions normal. Lipase normal. 03/30/24 11:45 03/30/24 11:45 Labs: Lab Results 03/30/24 03/30/24 Range/Units 11:45 13:45 WBC 8.5 (4.5-11.0) X10^3/uL RBC 4.64 (4.0-5.2) X10^6/uL Hgb 13.2 (12.0-16.0) g/dL Hct 39.8 (36-46) % MCV 85.7 (80-100) fL MCH 28.4 (26-34) PG MCHC 33.1 (30-36) % RDW 14.3 (11.6-14.8) % Plt Count 316 (150-400) X10^3/uL Neut % (Auto) 69.5 (50-75) % Lymph % (Auto) 22.8 L (25-40) % [place] % (Auto) 5.6 (3-14) % Eos % (Auto) 1.2 L (2-4) % Baso % (Auto) 0.9 (0-2) % Neut # (Auto) 5900 (8487-7664) /uL Lymph # (Auto) 1900 (2813-7625) /uL [place] # (Auto) 500 (0-900) /uL Eos # (Auto) 100 (0-450) /uL Baso # (Auto) 100 (0-100) /uL PT 11.6 (9.4-12.5) SECONDS INR 1.0 (0.9-1.3) APTT 24 L (25.1-36.5) SECONDS Sodium 137 (137-145) mmol/L Potassium 4.6 (3.4-5.1) mmol/L Chloride 104 (98-107) mmol/L Carbon Dioxide 23 (22-32) mmol/L BUN 12 (7-17) mg/dL Creatinine 0.91 (0.52-1.04) mg/dL Estimated GFR > 60 (>60) mL/min BUN/Creatinine Ratio 13.2 (6-22) Glucose 146 H (80-110) mg/dL Calcium 9.8 (8.4-10.2) mg/dL Magnesium 1.1 L (1.6-2.3) mg/dL Total Bilirubin 0.7 (0.2-1.3) mg/dL AST 36 (14-36) IU/L ALT 24 (<35) IU/L Alkaline Phosphatase 37 L (38-126) U/L Total Creatine Kinase 49 (30-135) U/L Troponin I < 0.012 < 0.012 (0.01-0.034) ng/mL NT-Pro-B Natriuret Pep 43 (<125) pg/mL Total Protein 7.0 (6.3-8.2) g/dL Albumin 4.3 (3.5-5.0) g/dL Globulin 2.7 (1.7-4.1) g/dL Albumin/Globulin Ratio 1.6 (1.0-2.8) Lipase 105 (23-300) U/L Point of Care Testing Glucose POC 75 Imaging Data Chest x-ray: Radiologist's Impression: Close Abdomen/Pelvis CT (Signed) LenCaitlyn - 03/30/24 Chest CTA (Signed) Len,Caitlyn - 03/30/24 Chest X-Ray (Signed) Caitlyn Harrington - 03/30/24 Launch?[place] [address] XRay Report Signed Patient: Radha Hdez MR#: [id number] : 1950 Acct:[id number] Age/Sex: 74 / F Date of Service: 03/30/24 Loc: ED Accession Number: [id number] Procedure: XR chest 1V Ordering Provider: Cecilio Bianchi MD PROCEDURE: XR CHEST 1V INDICATIONS: chest pain TECHNIQUE: One view of the chest was acquired. COMPARISON: [facility], , XR CHEST 2V, 07/11/2021, 12:54. FINDINGS: Surgical changes and devices: None. Lungs and pleura: Lungs are clear. No pleural effusions or pneumothorax. Mediastinum: Mediastinal contours appear normal. Heart size is normal. Bones and chest wall: No suspicious bony lesions. Overlying soft tissues appear unremarkable. IMPRESSION: No acute cardiopulmonary abnormality is seen. Dictated by: Caitlyn Harrington M.D. on 03/30/2024 at 13:08 Approved by: Caitlyn Harrington M.D. on 03/30/2024 at 13:08 CT angiogram chest: Radiologist's Impression: [address] [address] [address] Scan Report Signed Patient: Radha Hdez MR#: [id number] : 1950 Acct:[id number] Age/Sex: 74 / F Date of Service: 03/30/24 Loc: ED Accession Number: [id number] Procedure: CT angio chest PE protocol Ordering Provider: Cecilio Bianchi MD PROCEDURE: CT ANGIO CHEST PE PROTOCOL INDICATIONS: syncope, hx PE rior 2021 TECHNIQUE: After the administration of intravenous contrast, 2 mm thick sections acquired from the pulmonary apices to the posterior costophrenic angles. 3-dimensional maximum intensity projection (MIP) coronal and sagittal reformats were then acquired through the thorax. For radiation dose reduction, the following was used: automated exposure control, adjustment of mA and/or kV according to patient size. COMPARISON: [facility], CT, CT ANGIO CHEST PE PROTOCOL, 07/11/2021, 15:07. FINDINGS: Image quality: Diagnostic. Pulmonary arteries: Pulmonary arteries are normal in size, and demonstrate no intraluminal filling defects to suggest central pulmonary embolism. Lower Neck: No enlarged lymph nodes. Thyroid: Chronic enlarged left thyroid lobe. Axillae: No enlarged lymph nodes. Chest Wall: Small intramuscular lipoma in the right infraspinatus muscle. Chest wall is otherwise within normal limits. Bones: No suspicious bone lesions. Lungs and Pleura: Posterior right lower lobe chronic linear opacity consistent with scarring, decreased in prominence compared to the prior exam where there was adjacent ground-glass opacity. No acute ground-glass opacities or dense pulmonary consolidations. Thin-walled pneumatocele in the left lower lobe. Heart: Heart size is normal. No pericardial effusion. Moderate coronary artery calcification. Thoracic Vessels: No aortic aneurysm. Mediastinum and Mag: Progression of adenopathy throughout the mediastinum and bilateral hilar regions as well as a posterior mediastinal periaortic lymph node, several of which appear chronic. Esophagus: Circumferential wall thickening of the esophagus near the aortic arch. No hiatal hernia. Upper Abdomen: Dictated separately. IMPRESSION: No acute pulmonary embolus. No acute pulmonary parenchymal process. Chronic mediastinal and hilar lymphadenopathy with questionable progression. Mild circumferential esophageal wall thickening. Correlate with any symptoms. Dictated by: Caitlyn Harrington M.D. on 03/30/2024 at 13:20 Approved by: Caitlyn Harrington M.D. on 03/30/2024 at 13:40 CT scan - abdomen/pelvis: Radiologist's Impression: [address] [address] [address] Scan Report Signed Patient: Radha Hdez MR#: [id number] : 1950 Acct:[id number] Age/Sex: 74 / F Date of Service: 03/30/24 Loc: ED Accession Number: [id number] Procedure: CT abdomen pelvis w con Ordering Provider: Cecilio Bianchi MD PROCEDURE: CT ABDOMEN PELVIS W CON INDICATIONS: syncope TECHNIQUE: After the administration of intravenous contrast, axial sections acquired from the lung bases to the pubic symphysis. Coronal and sagittal reformats were performed. For radiation dose reduction, the following was used: automated exposure control, adjustment of mA and/or kV according to patient size. COMPARISON: None. FINDINGS: Image quality: Diagnostic. Lower Chest: Dictated separately ABDOMEN: Liver: No solid mass. Gallbladder: Possible stones layering dependently in the body of the gallbladder. No significant pericholecystic inflammation. Biliary ducts: Possible common bile duct dilatation. No significant intrahepatic biliary dilatation. Pancreas: Minimally prominent smooth pancreatic duct. No peripancreatic inflammation. Spleen: Size is within normal limits. Adrenal Glands: No adrenal nodules. Kidneys and Ureters: Symmetric enhancement. No nephrolithiasis or hydronephrosis. No hydroureter. Stomach and Bowel: Mild wall thickening of the gastric antrum. There are large duodenal diverticuli arising from the 3rd and 4th portions. No perforation. Long segment wall thickening of the jejunal loop in the central abdomen with minor surrounding inflammatory changes. Solid stool occasionally in the proximal colon. There is circumferential long segment wall thickening and mural edema involving the proximal sigmoid colon with mucosal hyperemia. Diverticular disease in the distal sigmoid without surrounding inflammation. Peritoneum: Trace pelvic fluid. No free air. Ventral Wall: No significant ventral hernia. Abdominal Nodes: No retroperitoneal or mesenteric adenopathy by size criteria. Vessels: The abdominal aorta, IVC, and portal vein are of normal caliber. PELVIS: Pelvic Organs: Hysterectomy. Bladder: Decompressed. Pelvic Nodes: No enlarged lymph nodes. Miscellaneous: No inguinal hernias are seen. Bones: No aggressive osseous abnormality. Degenerative changes. IMPRESSION: Findings of acute proximal sigmoid colitis, probably infectious or inflammatory. Scattered findings in the mid small bowel of enteritis and/or enteropathy which may be infectious or inflammatory as well. No evidence of bowel obstruction. Cholelithiasis. Possible common duct and pancreatic duct dilatation. This may be physiologic. Correlate with lab values to determine clinical significance. Dictated by: Caitlyn Harrington M.D. on 03/30/2024 at 13:40 Approved by: Caitlyn Harrington M.D. on 03/30/2024 at 13:47 ECG Data Attestation: I personally reviewed and interpreted this ECG as follows: Interpretation: Normal sinus rhythm with rate 64, no obvious ST segment elevation or depression changes. Flat T-waves lead 3, upright in other contiguous inferior leads. QRS 70, QTC 449. MDM Narrative Medical decision making narrative: 74-year-old female with near syncopal episode and associated diaphoresis, history of pulmonary embolism 2021 no longer taking anticoagulants, no chest pain or palpitation symptoms, some abdominal discomfort and urgency to defecate. No actual loss of consciousness. Transient symptoms, seems recovered. DDx consider vasovagal episode, recurrence of pulmonary embolus, ACS, acute abdominal process, pneumonia, aortic aneurysm/dissection, other. EKG screening study unremarkable, troponin and other labs pending. If GFR favorable would consider CTA chest imaging, perhaps also with abdominal imaging. Patient agreeable. CBC unremarkable, CMP unremarkable, GFR favorable. CTA chest ordered, with IV only CT abdomen and pelvis imaging. Keep NPO for now. CTA chest no acute changes. See radiology report. CT abdomen and pelvis shows presence of gallstones, no obvious thickening, but some dilatation of common bile duct as well as pancreatic duct. See radiology report No fever, no leukocytosis, normal liver functions and lipase. However patient does have some residual abdominal discomfort, dilatation of common bile duct and pancreatic duct in context of cholelithiasis, consider distal stone not visualized by CT. Consider MRCP if can be done. We will query. MR abdomen pelvis can be done today, planetarium technician aware. Ordered. Patient agreeable. MRI abdomen and pelvis study. Impressions: ?Mildly dilated common bile duct at 13 mm. The distal common bile duct demonstrates a relatively abrupt cut off, with a moderate suspicion for common bile duct stone. Potential layering gallstone seen within the gallbladder.? See radiology report. 1650, case discussed with GI Dr Elizalde at [facility], agrees with need for ERCP, he can consult, transfer there if there are beds available. 1800, still awaiting callback from [facility] to see if they can accept, vs alternate ERCP-capable facility, signed out to [facility] ED shift physician Dr Vasquez <Abrahan Vasquez, DO - Last Filed: 03/30/24 22:38> Lab Data Labs: Lab Results 03/30/24 03/30/24 Range/Units 11:45 13:45 WBC 8.5 (4.5-11.0) X10^3/uL RBC 4.64 (4.0-5.2) X10^6/uL Hgb 13.2 (12.0-16.0) g/dL Hct 39.8 (36-46) % MCV 85.7 (80-100) fL MCH 28.4 (26-34) PG MCHC 33.1 (30-36) % RDW 14.3 (11.6-14.8) % Plt Count 316 (150-400) X10^3/uL Neut % (Auto) 69.5 (50-75) % Lymph % (Auto) 22.8 L (25-40) % Mingo % (Auto) 5.6 (3-14) % Eos % (Auto) 1.2 L (2-4) % Baso % (Auto) 0.9 (0-2) % Neut # (Auto) 5900 (1922-0745) /uL Lymph # (Auto) 1900 (6061-3244) /uL Mingo # (Auto) 500 (0-900) /uL Eos # (Auto) 100 (0-450) /uL Baso # (Auto) 100 (0-100) /uL PT 11.6 (9.4-12.5) SECONDS INR 1.0 (0.9-1.3) APTT 24 L (25.1-36.5) SECONDS Sodium 137 (137-145) mmol/L Potassium 4.6 (3.4-5.1) mmol/L Chloride 104 (98-107) mmol/L Carbon Dioxide 23 (22-32) mmol/L BUN 12 (7-17) mg/dL Creatinine 0.91 (0.52-1.04) mg/dL Estimated GFR > 60 (>60) mL/min BUN/Creatinine Ratio 13.2 (6-22) Glucose 146 H (80-110) mg/dL Calcium 9.8 (8.4-10.2) mg/dL Magnesium 1.1 L (1.6-2.3) mg/dL Total Bilirubin 0.7 (0.2-1.3) mg/dL AST 36 (14-36) IU/L ALT 24 (<35) IU/L Alkaline Phosphatase 37 L (38-126) U/L Total Creatine Kinase 49 (30-135) U/L Troponin I < 0.012 < 0.012 (0.01-0.034) ng/mL NT-Pro-B Natriuret Pep 43 (<125) pg/mL Total Protein 7.0 (6.3-8.2) g/dL Albumin 4.3 (3.5-5.0) g/dL Globulin 2.7 (1.7-4.1) g/dL Albumin/Globulin Ratio 1.6 (1.0-2.8) Lipase 105 (23-300) U/L Point of Care Testing Glucose POC 75 Imaging Data MRCP: Radiologist's Impression: PROCEDURE: MR AB PANCREATIC/MRCP PROTOCOL INDICATIONS: abd pain, CT Abd/P common bile/pancreatic duct dilation TECHNIQUE: Coronal HASTE through the abdomen, axial 2-D FLASH in- and [id number], and breath-hold T2 FSE with fat saturation through the biliary system and pancreas. Oblique coronal and axial thin-slice HASTE, radial thick-slab HASTE centered on the extrahepatic bile ducts. Intravenous secretin: Not requested. COMPARISON: [facility], CR, XR CHEST 1V, 03/30/2024, 12:22. [facility], CT, CT ANGIO CHEST PE PROTOCOL, 03/30/2024, 13:11. [facility], CT, CT ABDOMEN PELVIS W CON, 03/30/2024, 13:11. FINDINGS: Image quality: Diagnostic, with note made of motion artifact. Gallbladder: There is a potential layering gallstone again seen, as on series 5, image 14. No gallbladder wall thickening. Biliary ducts: The common bile duct is dilated to 13 mm. No intrahepatic biliary ductal dilatation is seen. The distal common bile duct demonstrates a relatively abrupt cut off, as seen on series 6, image 13. Pancreas: No ductal dilation. No alber congenital developmental anomalies are seen. No significant pancreas abnormality is seen. OTHER: Lung bases: Unremarkable. Liver: No solid mass. Spleen: Size is within normal limits. Adrenal Glands: No adrenal nodules. Kidneys and Ureters: No hydronephrosis. No solid mass. No complex renal cystic lesion which requires follow up. Stomach and Bowel: Normal colonic caliber, without significant wall thickening. Peritoneum: No abnormal intraperitoneal fluid. No free air. Ventral Wall: No hernia. Abdominal Nodes: No retroperitoneal or mesenteric adenopathy by size criteria. Vessels: Aorta and inferior vena cava are normal in size. Bones: No aggressive osseous abnormality. Age-appropriate bony degenerative changes are seen. Mild levoconvex scoliotic curvature is noted. IMPRESSION: Mildly dilated common bile duct at 13 mm. The distal common bile duct demonstrates a relatively abrupt cut off, with a moderate suspicion for a common duct stone. Potential layering gallstone seen within the gallbladder. MDM Narrative Medical decision making narrative: 74-year-old female with near syncopal episode and associated diaphoresis, history of pulmonary embolism 2021 no longer taking anticoagulants, no chest pain or palpitation symptoms, some abdominal discomfort and urgency to defecate. No actual loss of consciousness. Transient symptoms, seems recovered. DDx consider vasovagal episode, recurrence of pulmonary embolus, ACS, acute abdominal process, pneumonia, aortic aneurysm/dissection, other. EKG screening study unremarkable, troponin and other labs pending. If GFR favorable would consider CTA chest imaging, perhaps also with abdominal imaging. Patient agreeable. CBC unremarkable, CMP unremarkable, GFR favorable. CTA chest ordered, with IV only CT abdomen and pelvis imaging. Keep NPO for now. CTA chest no acute changes. See radiology report. CT abdomen and pelvis shows presence of gallstones, no obvious thickening, but some dilatation of common bile duct as well as pancreatic duct. See radiology report No fever, no leukocytosis, normal liver functions and lipase. However patient does have some residual abdominal discomfort, dilatation of common bile duct and pancreatic duct in context of cholelithiasis, consider distal stone not visualized by CT. Consider MRCP if can be done. We will query. MR abdomen pelvis can be done today, planetarium technician aware. Ordered. Patient agreeable. MRI abdomen and pelvis study. Impressions: ?Mildly dilated common bile duct at 13 mm. The distal common bile duct demonstrates a relatively abrupt cut off, with a moderate suspicion for common bile duct stone. Potential layering gallstone seen within the gallbladder.? See radiology report. 1650, case discussed with GI Dr Elizalde at [facility]ty, agrees with need for ERCP, he can consult, transfer there if there are beds available. 1800, still awaiting callback from [facility] to see if they can accept, vs alternate ERCP-capable facility, signed out to [facility] ED shift physician Dr Pedro Vasquez: received turned over. Review patient's history and physical exam. Review patient's workup up to this point. Discussed the case with on-call Gastroenterology at [address] who stated that they would be happy to follow along if the patient were to be transferred. I then discussed the case with Dr. Alamo hospitalist at [facility] who accepts the patient in transfer. Patient was stable for transport. Will transfer for higher level of care. Discharge Plan Departure Patient Disposition: [facility] Clinical Impression: Near syncope, Hypomagnesemia, Hilar lymphadenopathy, Cholelithiasis, Common bile duct (CBD) obstruction Prescriptions: No Action glipizide 10 MG tablet extended release 24hr 10 mg PO BID Qty: 60 2RF lisinopril-hydrochlorothiazide 20 MG/12.5 MG tablet 1 tab PO BID Qty: 0 citalopram 40 MG tablet 40 mg PO QDAY Qty: 0 NAPROXEN (NAPROSYN) 250 mg PO BIDCC Qty: 60 0RF metformin [Glucophage XR] 500 MG tablet extended release 24 hr 500 mg PO BID Qty: 60 rosuvastatin [Crestor] 10 MG tablet 10 mg PO HS Qty: 30 0RF Trulicity 0.75 mg/0.5 mL pen injector 0.75 mg SUBCUT WEEKLY Patient Comments: ADMINISTER 0.75 MG UNDER THE SKIN EVERY 7 DAYS apixaban 5 mg tablet 5 mg PO BID Qty: 60 0RF Rx Instructions: please start after finishing the 10mg BID dose Referrals: Emelina Cuevas MD [Primary Care Provider] -
[2024-03-30 12:23] LABS: Prothrombin Time 11.6 SECONDS (9.4-12.5)
[2024-03-30 12:27] LABS: Alanine Aminotransferase 24 IU/L (<35); Albumin 4.3 g/dL (3.5-5.0); Albumin Globulin Ratio 1.6 (1.0-2.8); Alkaline Phosphatase 37 U/L (38-126); Aspartate Aminotransferase 36 IU/L (14-36); BUN Creatinine Ratio 13.2 (6-22); Bilirubin Total 0.7 mg/dL (0.2-1.3); Blood Urea Nitrogen 12 mg/dL (7-17); Calcium 9.8 mg/dL (8.4-10.2); Carbon Dioxide 23 mmol/L (22-32); Chloride 104 mmol/L (98-107); Creatine Kinase 49 U/L (30-135); Estimated Glomerular Filt Rate > 60 mL/min (>60); Globulin 2.7 g/dL (1.7-4.1); Glucose 146 mg/dL (80-110); Lipase 105 U/L (23-300); Magnesium 1.1 mg/dL (1.6-2.3); Potassium 4.6 mmol/L (3.4-5.1); Sodium 137 mmol/L (137-145)
[2024-03-30 12:30] LABS: HEMOLYSIS 64 (0-50)
[2024-03-30 12:38] LABS: NT-proBNP (BNP-Adult 18+) 43 pg/mL (<125); Troponin I < 0.012 ng/mL (0.01-0.034)
[2024-03-30 12:50] LABS: PTT Partial Thromboplastin Tim 24 SECONDS (25.1-36.5)
--- NOTE | 2024-03-30 13:00 | DI.CT.S_ITS ---
PROCEDURE: CT ABDOMEN PELVIS W CON INDICATIONS: syncope TECHNIQUE: After the administration of intravenous contrast, axial sections acquired from the lung bases to the pubic symphysis. Coronal and sagittal reformats were performed. For radiation dose reduction, the following was used: automated exposure control, adjustment of mA and/or kV according to patient size. COMPARISON: None. FINDINGS: Image quality: Diagnostic. Lower Chest: Dictated separately ABDOMEN: Liver: No solid mass. Gallbladder: Possible stones layering dependently in the body of the gallbladder. No significant pericholecystic inflammation. Biliary ducts: Possible common bile duct dilatation. No significant intrahepatic biliary dilatation. Pancreas: Minimally prominent smooth pancreatic duct. No peripancreatic inflammation. Spleen: Size is within normal limits. Adrenal Glands: No adrenal nodules. Kidneys and Ureters: Symmetric enhancement. No nephrolithiasis or hydronephrosis. No hydroureter. Stomach and Bowel: Mild wall thickening of the gastric antrum. There are large duodenal diverticuli arising from the 3rd and 4th portions. No perforation. Long segment wall thickening of the jejunal loop in the central abdomen with minor surrounding inflammatory changes. Solid stool occasionally in the proximal colon. There is circumferential long segment wall thickening and mural edema involving the proximal sigmoid colon with mucosal hyperemia. Diverticular disease in the distal sigmoid without surrounding inflammation. Peritoneum: Trace pelvic fluid. No free air. Ventral Wall: No significant ventral hernia. Abdominal Nodes: No retroperitoneal or mesenteric adenopathy by size criteria. Vessels: The abdominal aorta, IVC, and portal vein are of normal caliber. PELVIS: Pelvic Organs: Hysterectomy. Bladder: Decompressed. Pelvic Nodes: No enlarged lymph nodes. Miscellaneous: No inguinal hernias are seen. Bones: No aggressive osseous abnormality. Degenerative changes. IMPRESSION: Findings of acute proximal sigmoid colitis, probably infectious or inflammatory. Scattered findings in the mid small bowel of enteritis and/or enteropathy which may be infectious or inflammatory as well. No evidence of bowel obstruction. Cholelithiasis. Possible common duct and pancreatic duct dilatation. This may be physiologic. Correlate with lab values to determine clinical significance. Dictated by: Caitlyn Harrington M.D. on 03/30/2024 at 13:40 Approved by: Caitlyn Harrington M.D. on 03/30/2024 at 13:47
--- NOTE | 2024-03-30 13:00 | DI.CT.S_ITS ---
PROCEDURE: CT ANGIO CHEST PE PROTOCOL INDICATIONS: syncope, hx PE rior 2021 TECHNIQUE: After the administration of intravenous contrast, 2 mm thick sections acquired from the pulmonary apices to the posterior costophrenic angles. 3-dimensional maximum intensity projection (MIP) coronal and sagittal reformats were then acquired through the thorax. For radiation dose reduction, the following was used: automated exposure control, adjustment of mA and/or kV according to patient size. COMPARISON: [facility], CT, CT ANGIO CHEST PE PROTOCOL, 07/11/2021, 15:07. FINDINGS: Image quality: Diagnostic. Pulmonary arteries: Pulmonary arteries are normal in size, and demonstrate no intraluminal filling defects to suggest central pulmonary embolism. Lower Neck: No enlarged lymph nodes. Thyroid: Chronic enlarged left thyroid lobe. Axillae: No enlarged lymph nodes. Chest Wall: Small intramuscular lipoma in the right infraspinatus muscle. Chest wall is otherwise within normal limits. Bones: No suspicious bone lesions. Lungs and Pleura: Posterior right lower lobe chronic linear opacity consistent with scarring, decreased in prominence compared to the prior exam where there was adjacent ground-glass opacity. No acute ground-glass opacities or dense pulmonary consolidations. Thin-walled pneumatocele in the left lower lobe. Heart: Heart size is normal. No pericardial effusion. Moderate coronary artery calcification. Thoracic Vessels: No aortic aneurysm. Mediastinum and Mag: Progression of adenopathy throughout the mediastinum and bilateral hilar regions as well as a posterior mediastinal periaortic lymph node, several of which appear chronic. Esophagus: Circumferential wall thickening of the esophagus near the aortic arch. No hiatal hernia. Upper Abdomen: Dictated separately. IMPRESSION: No acute pulmonary embolus. No acute pulmonary parenchymal process. Chronic mediastinal and hilar lymphadenopathy with questionable progression. Mild circumferential esophageal wall thickening. Correlate with any symptoms. Dictated by: Caitlyn Harrington M.D. on 03/30/2024 at 13:20 Approved by: Caitlyn Harrington M.D. on 03/30/2024 at 13:40
[2024-03-30 14:16] LABS: Troponin I < 0.012 ng/mL (0.01-0.034)
--- NOTE | 2024-03-30 15:19 | DI.MRI.S_ITS ---
PROCEDURE: MR AB PANCREATIC/MRCP PROTOCOL INDICATIONS: abd pain, CT Abd/P common bile/pancreatic duct dilation TECHNIQUE: Coronal HASTE through the abdomen, axial 2-D FLASH in- and [id number], and breath-hold T2 FSE with fat saturation through the biliary system and pancreas. Oblique coronal and axial thin-slice HASTE, radial thick-slab HASTE centered on the extrahepatic bile ducts. Intravenous secretin: Not requested. COMPARISON: [facility], CR, XR CHEST 1V, 03/30/2024, 12:22. [facility], CT, CT ANGIO CHEST PE PROTOCOL, 03/30/2024, 13:11. [facility], CT, CT ABDOMEN PELVIS W CON, 03/30/2024, 13:11. FINDINGS: Image quality: Diagnostic, with note made of motion artifact. Gallbladder: There is a potential layering gallstone again seen, as on series 5, image 14. No gallbladder wall thickening. Biliary ducts: The common bile duct is dilated to 13 mm. No intrahepatic biliary ductal dilatation is seen. The distal common bile duct demonstrates a relatively abrupt cut off, as seen on series 6, image 13. Pancreas: No ductal dilation. No alber congenital developmental anomalies are seen. No significant pancreas abnormality is seen. OTHER: Lung bases: Unremarkable. Liver: No solid mass. Spleen: Size is within normal limits. Adrenal Glands: No adrenal nodules. Kidneys and Ureters: No hydronephrosis. No solid mass. No complex renal cystic lesion which requires follow up. Stomach and Bowel: Normal colonic caliber, without significant wall thickening. Peritoneum: No abnormal intraperitoneal fluid. No free air. Ventral Wall: No hernia. Abdominal Nodes: No retroperitoneal or mesenteric adenopathy by size criteria. Vessels: Aorta and inferior vena cava are normal in size. Bones: No aggressive osseous abnormality. Age-appropriate bony degenerative changes are seen. Mild levoconvex scoliotic curvature is noted. IMPRESSION: Mildly dilated common bile duct at 13 mm. The distal common bile duct demonstrates a relatively abrupt cut off, with a moderate suspicion for a common duct stone. Potential layering gallstone seen within the gallbladder. Dictated by: Uriel Ramirez M.D. on 03/30/2024 at 14:58 Approved by: Uriel Ramirez M.D. on 03/30/2024 at 15:03
[2024-03-30] MEDS: MAGNESIUM SULFATE 2 GM/50 ML PIGGYBACK IV (15:39)
--- NOTE | 2024-03-30 17:31 | PC.NURSE ---
Addendum entered by Kristi Rodriguez CNA 03/30/24 22:40: 0: Dr. Alamo hospitalist accepts & transport will be here @ 1550 Addendum entered by Kristi Rodriguez CNA 03/30/24 20:49: 193: [facility] said [facility] were not accepting many transfers at this time but they would review her case. 1944: [facility]swed [facility] but she was working on xfering other pt's and would get back to us if a bed opens up. 2054: Dr. Sherron NOLAND from [facility] Original Note: Hospital Call List for Patient Transfer 164: Called distribution associate GI specialist Dr. [place] 170: [facility], spoke with Malgorzata, patient on wait list
--- NOTE | 2024-03-30 19:38 | PC.NURSE ---
Pt ambulatory to restroom without difficulty or assistance, one person standby.
--- NOTE | 2024-03-30 21:30 | PC.NURSE ---
Pt ambulatory to restroom without difficulty or assistance. 1 person standby.
[2024-03-30] MEDS: ACETAMINOPHEN 325 MG TABLET 650 MG PO (21:54)
== END 2024-03-30 23:33 | disposition short-term general hospital (02) ==
PROVIDERS: Emergency Medicine; Emergency Provider Emergency Medicine; PCP Internal Medicine
DX: R55 Syncope and collapse (principal); K80.21 Calculus of gallbladder without cholecystitis with obstruction; E83.42 Hypomagnesemia; R10.9 Unspecified abdominal pain; R07.9 Chest pain, unspecified; R59.0 Localized enlarged lymph nodes
CPT/HCPCS: 36415; 71045; 71275; 74177; 74183; 80053; 82550; 82962; 83690; 83735; 83880; 84484; 85025; 85610; 85730; 93005; 96365; 96366; 99285; A9579; J3475; Q9967